=== PATIENT | male | born 1940 | race Caucasian/White ===

== ENCOUNTER 2016-12-01 13:27 | Observation (INO) ==
--- NOTE | 2016-12-01 13:46 | PROVIDER DOCUMENTATION ---
HPI-Neurological Disorder - General Chief Complaint: Stroke-Like Symptoms Stated Complaint: AMS/Aphasia Time Seen by Provider: 12/01/16 13:30 Source: patient, family Allergies/Adverse Reactions: Patient Allergies Allergy/AdvReac Type Severity Reaction Status Date / Time No Known Allergies Allergy Verified 12/01/16 13:33 Home Medications: Home Medication List Medication Instructions Recorded Confirmed Last Taken Type Losartan/Hydrochlorothiazide 1 each PO DAILY 12/01/16 12/01/16 Unknown History [Losartan-Hctz 100-25 mg Tab] - History of Present Illness-Neuro Nature of Presenting Problem: patient is a 76 yo M that presents to the ER after having an episode of confusion with garble speech. reports barely understanding patient. Patient symptoms have resolved. He saw his PCP this am for evaluation of leg weakness and issues walking for 6 months. Severity: reports: moderate Onset/Duration: reports: abrupt, 1 hour ago Timing: reports: improving Context: reports: impaired speech. denies: paresthesia, facial droop Character of Altered Mental Status: reports: confused Character of Deficits: reports: impaired speech New weakness or altered sensation location:: reports: none Cognitive Baseline: alert, oriented x3 Gait Baseline: walks without assistance Associated Symptoms: reports: confusion, slurred speech. denies: headache, dizziness, nausea, numbness in legs/feet, paresthesia, seizures, sleepy, vomiting Similar Symptoms Previously?: No Recently seen or treated by another doctor?: No Review of Systems - Adult - REVIEW OF SYSTEMS - ADULT Constitutional: denies: chills, fever Eyes: denies: decreased vision, blurred vision, double vision Ears, Nose, Mouth & Throat: denies: ear discharge, ear pain, sinus problem, throat pain, throat swelling Cardiovascular: denies: chest pain, palpitations, syncope Respiratory: denies: cough, shortness of breath, wheezing Gastrointestinal: denies: abdominal pain, diarrhea, nausea, vomiting Genitourinary: reports: no symptoms reported Musculoskeletal: denies: back pain, joint pain, neck pain Integumentary: reports: no symptoms reported Neurological: reports: ataxia, slurred speech. denies: loss of balance, numbness, syncope Psychiatric: reports: no symptoms reported Endocrine: reports: no symptoms reported Hematologic/Lymphatic: reports: no symptoms reported Allergic/Immunologic: reports: no symptoms reported All Other Systems: Reviewed and Negative Past History - Adult - PAST MEDICAL HISTORY-ADULT Review of Records: reports: Old Records Reviewed, Nursing Assessment Review, Medications Reviewed Cardiovascular: reports: HTN - PRIOR SURGERIES/PROCEDURES Surgical/Procedure History: reports: orthopedic (extremity) - IMMUNIZATION STATUS Childhood Immunizations: See Nurse Assessment Flu Vaccine: See Nurse Assessment - FAMILY HISTORY Family History: reviewed, not pertinent - SOCIAL HISTORY Smoking: quit greater than 1 year, cigarettes Alcohol Use Frequency: never Living Situation: family Physical Exam- Neurological - Physical Exam-Neuro Initial Vital Signs Reviewed: Yes General Appearance: alert, no apparent distress Eye Exam: bilateral eye: normal inspection, PERRL HENMT: normocephalic/atraumatic, moist mucous membranes, normal ENT inspection Head Injury: no evidence of injury. negative: ecchymosis, flap Neck: full range of motion, normal inspection Respiratory: lungs clear, normal breath sounds, no respiratory distress, no accessory muscle use Cardiovascular: regular rate, rhythm, no edema, no murmur Abdominal Exam: normal bowel sounds, non tender, soft, no organomegaly, no pulsatile mass Extremity: normal range of motion, normal inspection, no pedal edema concrete smoother Exam: normal hearing, normal speech, PERRL Motor/Sensory: no motor deficit, no sensory deficit Neurologic: concrete smoother II-XII nml as tested, no motor/sensory deficits. negative: aphasia, EOM palsy, facial droop, focal weakness, motor weakness, sensory deficit Integumentary: normal color, warm/dry Psych/Mental Status: normal mood/affect, normal thought content, normal thought process, oriented x 3 - Glascow Coma Scale Best Eye Response: (4) open spontaneously Best Verbal Response: (5) oriented Best Motor Response: (6) obeys commands Total Glascow Score: 15 Progress - PLAN OF CARE/RESULTS Progress/Plan/Lab Results: Vital Signs - 8 hr 12/01/16 13:28 12/01/16 14:30 Temperature 99.3 F Pulse Rate 72 66 Respiratory Rate 16 18 Blood Pressure 173/94 161/98 O2 Sat by Pulse Oximetry 99 97 Laboratory Results - last 24 hr 12/01/16 12/01/16 12/01/16 13:40 13:40 13:40 WBC 8.85 RBC 4.07 L Hgb 12.6 L Hct 36.3 L MCV 89.2 MCH 31.0 MCHC 34.7 RDW Std Deviation 12.9 Plt Count 145 MPV 12.1 H Immature Gran % (Auto) 0.6 H Neut % (Auto) 67.3 Lymph % (Auto) 19.3 L Catron % (Auto) 9.3 Eos % (Auto) 2.8 Baso % (Auto) 0.7 Immature Gran # (Auto) 0.05 H Neut # (Auto) 5.96 Lymph # (Auto) 1.71 Catron # (Auto) 0.82 H Eos # (Auto) 0.25 Baso # (Auto) 0.06 PT 13.8 INR 0.98 APTT (Factor Assay) 30.1 Sodium 140 Potassium 3.9 Chloride 104 Carbon Dioxide 25 Anion Gap 11 BUN 19 Creatinine 1.2 Estimated GFR/1.73 m2 59 BUN/Creatinine Ratio 16 Glucose 159 H Calculated Osmolality 285 Calcium 9.0 Total Bilirubin 0.70 AST 15 ALT 13 Alkaline Phosphatase 83 Total Protein 7.3 Albumin 4.2 Globulin 3.0 Albumin/Globulin Ratio 1.0 Orders Category Date Time Status CHEST-2 VIEWS [RAD] Stat Exams 12/01/16 13:[address] HEAD W/O CONTRAST [CT] Stat Exams 12/01/16 13:41 Completed CBC WITH DIFF [HEME] Stat Lab 12/01/16 13:40 Completed COMPREHENSIVE METABOLIC PANEL [CHEM] Stat Lab 12/01/16 13:40 Completed PR[address]IME WITH INR PL [COAG] Stat Lab 12/01/16 13:[address] [COAG] Stat Lab 12/01/16 13:40 Completed EKG [EKG] Stat Ther 12/01/16 13:41 Draft Result Diagrams: 12/01/16 13:40 12/01/16 13:40 - EKG 1 Time of EKG reading by physician:: 13:48 EKG Read and Signed by:: Chris Rudolph EKG Interpretation (*Must complete 3 of following elements*): Normal Rate: 68 Rhythm: NSR [place]: normal QRS: normal [place] Interval: normal ST Wave: normal - XRAY 1 XRAY Study: Chest Impression: Normal XRAY Interpretation: nad - CT/MRI 1 CT Study: Head Impression: Abnormal CT Results: nad, atrophy and microvascular dz - CONSULTS/PCP/HOSPITALIST Notification #1 *Consult/PCP/Hospitalist*: ( hospitalist) Time Discussed: 15:40 Consult Disposition: Admit Departure - Departure Date of Disposition Decision: 12/01/16 Time of Disposition Decision: 15:40 DIAGNOSIS: TIA (transient ischemic attack) Qualifiers: Transient cerebral ischemia type: unspecified Qualified Code(s): G45.9 - Transient cerebral ischemic attack, unspecified Disposition: ADMITTED INPATIENT 09 Certified Medical Emergency: Emergent Condition: Stable Referrals and Follow-Ups: None,PCP [Primary Care Provider] - - Critical Care Note This patient required my direct & personal management of CC.: No Attestation - Physician/ RUFINA Attestation The physician spent face to face time with patient:: Yes Advanced Practice Provider documentation review:: Supervising physician onsite and consulted in the evaluation and care of this patient. The physician did have a face to face encounter with the patient.
[2016-12-01 13:50] LABS: MANUAL DIFF NEEDED? NO
[2016-12-01 13:52] LABS: BASO% 0.7 % (0.0-0.8); EOS# 0.25 X1000 (0.0-0.7); EOS% 2.8 % (0.0-10.0); HEMATOCRIT 36.3 % (42.0-52.0); HEMOGLOBIN 12.6 g/dL (14.0-18.0); IMM GRAN# 0.05 X1000 (0.0-0.04); IMM GRAN% 0.6 % (0.0-0.5); LYMPH# 1.71 X1000 (1.2-3.4); LYMPH% 19.3 % (20.5-51.1); MCHC 34.7 g/dL (33-37); MCV 89.2 FL (81-99); MONO# 0.82 X1000 (0.11-0.59); MONO% 9.3 % (1.7-9.3); MPV 12.1 FL (7.4-10.4); NEUT% 67.3 % (42.2-75.2); PLT 145 X1000 (130-400); RBC 4.07 XMIL (4.7-6.1)
--- NOTE | 2016-12-01 14:03 | EKG Report ---
Test Performed on : 12/01/2016 1:48:04 PM Test Reason : STROKELIKE Blood Pressure : / mmHG Vent. Rate : 068 BPM Atrial Rate : 068 BPM P-R Int : 184 ms QRS Dur : 088 ms QT Int : 422 ms P-R-T Axes : 048 017 074 degrees QTc Int : 448 ms Normal sinus rhythm. Normal ECG No previous ECGs available Unconfirmed Result
[2016-12-01 14:06] LABS: INR 0.98 (0.86-1.15); PROTIME 13.8 Seconds (12.1-15.5); PTT PL 30.1 Seconds (22.6-43.9)
[2016-12-01 14:08] LABS: ALBUMIN 4.2 g/dL (3.5-5.0); POTASSIUM 3.9 mmol/L (3.5-5.1); TOTAL BILIRUBIN 0.7 mg/dL (0.20-1.00); TOTAL PROTEIN 7.3 g/dL (6.3-8.3)
--- NOTE | 2016-12-01 14:35 | Diag Imaging Result Doc PS360 ---
EXAM: CT HEAD W/O CONTRAST HISTORY: stroke like symptoms TECHNIQUE: Images were obtained from the skull base to vertex without IV contrast as per standard protocol. COMPARISON: None. FINDINGS: There are no extra-axial collections. There is no evidence for acute hemorrhage. There is no midline shift or mass effect. There is no hydrocephalus. There is diffuse cerebral atrophy. There is patchy hypodensity throughout the deep white matter which is nonspecific in appearance but likely related to microvascular disease IMPRESSION: No acute intracranial abnormality is appreciated. Atrophy and microvascular disease. Electronically signed by Elicia Foster 12/01/2016 2:33 PM
--- NOTE | 2016-12-01 14:37 | Diag Imaging Result Doc PS360 ---
EXAM: CHEST-2 VIEWS HISTORY: stroke like symptoms TECHNIQUE: PA and Lateral chest x-ray COMPARISON: None. FINDINGS: The cardiomediastinal silhouette is within normal limits. The pulmonary vasculature is not congested. No infiltrate, effusion, or pneumothorax is appreciated. There is evidence of previous granulomatous infection IMPRESSION: No acute cardiopulmonary abnormality is identified. Electronically signed by Elicia Foster 12/01/2016 2:35 PM
[2016-12-01] MEDS: PLAVIX PO SCH (16:13)
[2016-12-01] MEDS ORDERED: APRESOLINE IV PRN (17:35)
--- NOTE | 2016-12-01 18:49 | Extremity Venous Study ---
Carotid Ultrasound - 12/01/2016 INDICATION: tia TECHNIQUE: Bilateral carotid artery Doppler ultrasound COMPARISON: None FINDINGS: On the right side, there is some mild plaque buildup at the proximal internal carotid artery. No elevated velocities. Estimated stenosis is 0%. On the left side, there is severe plaque buildup and elevated velocity at the proximal-mid internal carotid artery. Maximum velocity is 331 cm/s at the proximal internal carotid artery. This is consistent with severe stenosis of 80-99%. The vertebral arteries are patent bilaterally. IMPRESSION: Severe stenosis of the left proximal internal carotid artery, 80-99%. Electronically signed by Tree Caban 12/01/2016 6:46 PM
--- NOTE | 2016-12-02 00:24 | CONSULTATION ---
DATE OF CONSULTATION: 12/01/2016 HISTORY OF PRESENT ILLNESS: This is a 76-year-old male who presents to the emergency department after he developed dysarthria today. States that he had trouble getting words out for what he was wanting to say. Daughter states it has some these were appropriate words but in some of it but in inappropriate order and some were discombobulated words. He denied any other focal deficits and this resolved within an hour upon arrival at the emergency room. Denies any headaches or symptoms currently. In emergency department a CT of the head showed some microvascular changes but no hemorrhage and there was some atrophy. Carotid duplex exam showed high- grade lesion correlating to 80-99% lesion in the left proximal internal carotid artery. Otherwise he has never had a colonoscopy but has hypertension is being treated by Dr. Simms, his primary care physician but denies any history of a TIA, stroke or coronary symptoms in the past. PAST MEDICAL HISTORY: 1. Hypertension. 2. Carotid stenosis. SURGICAL HISTORY: Has had an appendectomy and right knee surgery. SOCIAL HISTORY: Used to smoke many years ago was heavy at that point but denies any current, denies alcohol. He has got a lot of family here. He does some computer programming. FAMILY HISTORY: Significant for diabetes, coronary disease but no cancer. REVIEW OF SYSTEMS: Ten point negative than what is mentioned in HPI. PHYSICAL EXAMINATION: Vital Signs: Temperature is 97.6 degrees, pulse 68, blood pressure 194/68, oxygen saturation 100% on room air, 303 pounds, 5 foot 11. General: He is alert in no acute distress. He is oriented. HEENT: There is no scleral icterus or cervical masses. Cardiovascular: Normal rate, regular rhythm. Pulmonary: No increased work of breathing. He is on room air with equal chest rise. Abdomen: Soft, nontender, nondistended with no pulsatile abdominal masses. Integument: Exam is warm, dry without jaundice or rashes. Peripheral vascular: Exam shows 2+ bilateral radial pulses, 2+ pedal pulses in all locations. Extremities: Are otherwise warm, well perfused. No lower extremity edema. Musculoskeletal Exam: He has normal muscle mass throughout and grossly normal range of motion. Psychiatric: He has got an appropriate affect. Neurologic: He has cranial nerves 2-12 grossly intact. Pupils are equal, round, reactive. Muscle groups grossly are 5/5 throughout, sensation is intact throughout. Speech is normal and coherent and he is oriented to person, place, and time. Lymphatic exam: There is no cervical, axillary or inguinal lymphadenopathy. LABS: White count is normal at 8, hematocrit 36, platelets 145,000. INR 0.98. Creatinine is 1.2, glucose 159, LFTs are normal. Albumin is 4.2. CT of the head shows no intracranial abnormality other than atrophy and microvascular disease. There is no evidence of hemorrhage. Carotid duplex exam shows an 80-99% stenosis in the proximal left internal carotid artery. I have reviewed these images as well. ASSESSMENT AND PLAN: This is a 76-year-old male with transient ischemic attack symptoms that manifest with the dysarthria and he has also a high-grade severe stenosis left internal carotid artery noted correspond to symptoms he was having. He has been admitted to medicine service for observation. Would recommend permissive hypertension but maintaining blood pressure less than 180 would be reasonable to maintain supplemental O2. I would recommend initiation of anti-platelet therapy with aspirin and statin medication. We will continue to follow along. He also has a history of atrial fibrillation apparently that would probably benefit from having a echocardiogram to rule out any ventricular thrombus and an MRI of the brain would be reasonable as well to rule out any acute infarct that might affect his surgical planning although his symptoms do seem to be resolved. As far as endarterectomy I think he would benefit with a severe stenosis and symptoms of TIA and I think we could perform this within the next week pending progression of his symptoms or resolution thereof. Will continue follow along. I have spoken with the patient and family and will talk to the medicine service about him as well. cc: Mary Alice Naylor MD [facility]
[2016-12-02] MEDS ORDERED: LIPITOR PO ONE (08:18)
[2016-12-02] MEDS ORDERED: ASPIRIN PO ONE (08:18)
[2016-12-02] MEDS: PLAVIX PO SCH (08:53)
[2016-12-02] MEDS: ASPIRIN PO SCH (10:36)
[2016-12-02] MEDS: HYDROCHLOROTHIAZIDE PO SCH (10:37)
[2016-12-02] MEDS: COZAAR PO SCH (10:38)
--- NOTE | 2016-12-02 12:40 | PROGRESS NOTE ---
DATE: 12/02/2016 SUBJECTIVE: Feels well. No other neurologic episodes overnight. No headache. He feels well and in his usual state of health. PHYSICAL EXAM: Temperature is 97.6 degrees, pulse for most part has been in the 50s to 60s overnight. Blood pressure 154/61, oxygen saturation 99% on room air.General: He is alert, in no acute distress. HEENT: No scleral icterus. Cardiovascular: Normal rate, regular rhythm. Pulmonary: No increased work of breathing. Integument: Warm and dry without jaundice. Neurological: Cranial nerves are intact 2 through 12. Strength in his upper and lower extremities is also 5/5 and symmetric and his sensation is grossly normal. His affect is normal and he is oriented to person, place, and time and is speaking coherently and normally. Has full insight into his current medical condition. ASSESSMENT AND PLAN: A 76-year-old male with a TIA yesterday afternoon with a severe carotid stenosis on the left that meets criteria for surgical repair. I have initiated medical management and anti-platelet and statin therapy. His blood pressures are okay and he is being worked up by Dr. Altman in the Medicine Service. He does have atrial fibrillation and I think an echocardiogram to rule out thrombus is indicated. Otherwise if he remains asymptomatic through the weekend, we can see him in the office and plan for short interval elective left carotid endarterectomy. Otherwise we will continue to monitor him. For now I think an MRI of his brain would be reasonable to rule out a stroke although focally he does not seem to have this on his exam, as this might affect our timing of endarterectomy. I spoke with Dr. Altman about the care of this patient. cc: Mary Alice Naylor MD
--- NOTE | 2016-12-02 14:13 | PROGRESS NOTE ---
DATE: 12/02/2016 SUBJECTIVE: Patient notes that he is feeling fine. Having no current issues. No slurred speech. No headaches. No blurry vision. PHYSICAL: Vital Signs: Reviewed and stable. General: Patient is awake, alert. He is in no current respiratory distress. Pleasant to talk with. Neck: Supple. CV: Regular rate. Chest: Relatively clear. Abdomen: Soft. Extremities: Moves all extremities. Neurologic: No focal changes. He is awake, alert, oriented. Speech is regular. Memory is intact. ASSESSMENT: 1. TIA appears to have completely resolved. 2. Known carotid stenosis. PLAN: We will continue patient in the hospital today. If he had no further symptoms in the a.m. we will discharge home on cholesterol medication and aspirin. He will follow up outpatient at that point with Surgery. We will continue to follow his blood pressure. Further orders as needed. cc: Jose Altman MD
--- NOTE | 2016-12-02 14:54 | ECHO REPORT ---
ORDER DATE: 12/01/2016 ECHOCARDIOGRAPHIC MEASUREMENTS: 1. Interventricular septum 1.4. Left ventricular posterior wall 1.4. Diastolic diameter 4.3. Left atrium 5. Aorta 3.5. 2. Aortic valve leaflets were sclerosed, trileaflet opening normally. Pulmonic valve was normal. There is trace pulmonary regurgitation. Tricuspid valve was normal. 3. Normal left ventricular cavity size. Estimated ejection fraction of 65%. 4. There is trace to mild mitral regurgitation. Mild tricuspid regurgitation. Peak velocity across the tricuspid valve was 2.6 m/sec. 5. Peak velocity across the aortic valve less than 2 m/sec. There is no aortic stenosis. There is aortic sclerosis. There is no aortic regurgitation. 6. There is no pericardial effusion or obvious intracardiac mass or thrombus seen. cc: MD Chris Springer MD
[2016-12-02] MEDS ORDERED: ZOCOR PO SCH (21:00)
[2016-12-03] MEDS: COZAAR PO SCH (08:41)
[2016-12-03] MEDS: ASPIRIN PO SCH (08:41)
[2016-12-03] MEDS: HYDROCHLOROTHIAZIDE PO SCH (08:41)
[2016-12-03 11:47] VITALS: BP 150/68
--- NOTE | 2016-12-03 17:12 | HISTORY AND PHYSICAL ---
CHIEF COMPLAINT: Confused, could not talk right. HISTORY OF PRESENT ILLNESS: This is a 76-year-old gentleman who presented with family member stating that the patient was confused and he could not talk right. He was aphasic at first arrival to the emergency room. This did clear somewhat to a dysarthria. CT scan was negative for a bleed, although he did have some microvascular changes. He was admitted for further evaluation and treatment. PAST MEDICAL HISTORY: Hypertension. PAST SURGICAL HISTORY: Right knee repair. SOCIAL HISTORY: He smoked many years ago. He denies alcohol or illicit drug use. ALLERGIES: No known drug allergies. HOME MEDICATIONS: A list will be obtained. REVIEW OF SYSTEMS: A 14-point review of systems is discussed with patient, with pertinent positives stated in the HPI. He denied chest pain, palpitations, dizziness, syncope, any nausea or vomiting, diarrhea, constipation, black or bloody vomitus, black or bloody stools, hematuria, dysuria, frequency and urgency. PHYSICAL EXAMINATION: GENERAL: This is a 76-year-old gentleman who is sitting up in the bed, in no distress. HEENT: Head is normocephalic, atraumatic. Pupils equal, round, react to light. EOMS are intact. Sclerae are anicteric. Mucous membranes are moist. NECK: Supple. Trachea midline. CARDIOVASCULAR: Regular rate and rhythm. S1 and S2 appreciated. PULMONARY: Breath sounds are clear, with no increased work of breathing noted. GASTROINTESTINAL: Abdomen is soft, nontender, nondistended, with bowel sounds in all 4 quadrants. BACK: No CVAT. No spine tenderness. MUSCULOSKELETAL: Good range of motion of joints. EXTREMITIES: No clubbing, cyanosis, or edema. Calves are nontender. Pulses are palpable x4. NEUROLOGIC: He is alert and oriented x3. Forehead is spared. He has equal nasal flaring. No tongue or uvula deviation. Speech is clear. Equal shoulder shrug. He has no plantar drift. He has 5/5 muscle strength and manager control to bilateral upper extremities, with 5/5 muscle strength to lower extremities. DIAGNOSTICS: WBC is 8.8, with hemoglobin 12, hematocrit 36.3, and platelets of 145,000. Sodium is 140, potassium 3.9, BUN 19, creatinine 1.2, with a glucose of 159. CT scan of the head revealed no acute changes. No hemorrhage or mass effect, but chronic microvascular changes. ASSESSMENT AND PLAN: 1. Transient ischemic attack. 2. Severe carotid artery stenosis. He will be admitted to the hospital. Placed on telemetry. We will obtain neurologic checks. We will consult General surgery. We will obtain an echocardiogram. We will identify his home medications and continue as appropriate. Further treatments pending hospital course. Dictated by APRIL Ruggiero for Jose Altman MD cc: APRIL Ruggiero MD
--- NOTE | 2016-12-03 18:13 | DISCHARGE SUMMARY ---
ADMISSION DATE: 12/01/2016 DISCHARGE DATE: 12/03/2016 DIAGNOSES: 1. Transient ischemic attack, resolved. 2. Known carotid stenosis. CONSULTATIONS: Dr. Josh Naylor, General Surgery. DIAGNOSTICS: 1. On 12/01/2016, CT of the head revealed no acute intracranial abnormality appreciated. Atrophy and microvascular disease. 2. On 12/01/2016, carotid Doppler study revealed severe stenosis of the left proximal internal carotid artery, 80% to 99%. 3. Echocardiogram, revealed an ejection fraction of 65%, with normal left ventricular cavity size. Pulmonic and tricuspid valves are normal. There is trace pulmonary regurgitation. Aortic valve is tri-leaflet. No pericardial effusion, obvious intracardiac mass, or thrombus seen. HOSPITAL COURSE: Mr. Yoon presented to the emergency room and was having some dysarthria. CT scan showed some microvascular changes, but no hemorrhage. There was some atrophy. Cardiac duplex exam showed high-grade lesion, 80% to 99%, in the left proximal internal carotid artery. He was evaluated by Dr. Josh Naylor in General Surgery. Thankfully, his symptoms have resolved. DISCHARGE PHYSICAL EXAMINATION: Cardiovascular: Regular rate and rhythm. S1 and S2 appreciated. Pulmonary: Breath sounds are clear, with no increased work of breathing noted. Gastrointestinal: Abdomen is soft, nontender, nondistended, with bowel sounds in all 4 quadrants. Extremities: No clubbing, cyanosis, or edema. Calves are nontender. Pulses are palpable x4. Neurologic: He is alert and oriented x3. Cranial nerves 2 through 12 grossly intact. Vital Signs: Blood pressure is 149/71, with a heart rate of 56, respirations are 18, temperature is 98.5 degrees oral, with room air saturations 98%. DISCHARGE MEDICATIONS: Aspirin 81 mg 2 tablets daily, Zocor 40 mg at bedtime, and losartan/hydrochlorothiazide 100/25 daily. FOLLOWUP: 1. He is to follow up with Dr. Esteban Simms, his primary care physician, in the next 1 to 2 weeks. 2. He will need a MRI of the brain outpatient. 3. Follow up with Dr. Naylor in General Surgery in the next week. DISPOSITION: He is being discharged home in stable condition with family members. TIME SPENT: This is a greater than 30-minute discharge. Dictated by APRIL Ruggiero for Jose Altman MD cc: APRIL Ruggiero MD
--- NOTE | 2016-12-04 03:46 | DISCHARGE SUMMARY ---
ADMISSION DATE: 12/01/2016 DISCHARGE DATE: 12/03/2016 ADDENDUM: Discharge planning and discussion with patient occurred with nurse practitioner. Please see full note. The patient was admitted as noted on HPI with a TIA with slurred speech. Thankfully this completely resolved. On discharge, he is awake, alert, oriented. He has had no further symptoms for the past 48 hours. He will be discharged home with aspirin and Zocor. He will follow up with Dr. Simms in the morning to schedule an outpatient MRI of his brain. After the MRI is performed, he will follow up with General Surgery for discussion regarding carotid endarterectomy. Patient understands that he is to take it easy and not to overstimulate himself in the next few days until he follows up with Surgery. cc: Jose Altman MD
--- NOTE | 2016-12-04 03:47 | PROGRESS NOTE ---
DATE: 12/01/2016 ADDENDUM REPORT SUBJECTIVE: The patient was seen and examined. See full note. Patient discussed and plan discussed with nurse practitioner. The patient notes that he had slurred speech at home, although now it is currently completely resolved. He denies any focal weakness at home or now, denies any headaches, blurred vision, change in vision. Thankfully, his symptoms have resolved. He was noted to have a significant carotid blockage in the ER, and Surgery will be consulted for a further opinion. Discussed with patient that we will most likely attempt to wait a few days before surgical intervention. Will add aspirin and cholesterol medication. cc: Jose Altman MD
== END 2016-12-03 13:33 | disposition home or self-care (01) ==
LOC: P.MEDSURG 13:27 → P.ED 13:27 → SUATTDRO 17:14
PROVIDERS: ATTEND Family Medicine

== ENCOUNTER 2016-12-20 01:42 | Inpatient (IN) ==
[2016-12-20] MEDS ORDERED: KEFZOL 1 GM/D5W 0 GM/0 ML IVPB ONE (05:49)
[2016-12-20] MEDS ORDERED: LR 1,000 ML ONE ×2 (05:49→11:03)
[2016-12-20] MEDS ORDERED: DIPRIVAN 1% ONE (06:35)
[2016-12-20] MEDS ORDERED: XYLOCAINE-MPF 2% ONE (06:36)
[2016-12-20] MEDS ORDERED: QUELICIN (DOSE) ONE (06:36)
[2016-12-20] MEDS ORDERED: SODIUM CHLORIDE 0.9% 10 ML ONE (06:37)
[2016-12-20] MEDS ORDERED: NORCURON ONE (06:37)
[2016-12-20] MEDS ORDERED: FENTANYL ONE (06:38)
[2016-12-20] MEDS ORDERED: ATROPINE ONE (06:40)
[2016-12-20] MEDS ORDERED: XYLOCAINE 1%/EPI 1:100,000 ONE (06:45)
[2016-12-20] MEDS ORDERED: NS 1,000 ML ONE (06:46)
[2016-12-20] MEDS ORDERED: XYLOCAINE 1% ONE (06:46)
[2016-12-20] MEDS ORDERED: NS 0 ML ONE (06:55)
[2016-12-20] MEDS ORDERED: VERSED ONE (07:14)
[2016-12-20] MEDS ORDERED: KEFZOL 1 GM/D5W 1 GM/50 ML IVPB ONE (07:16)
[2016-12-20] MEDS ORDERED: HEPARIN ONE (08:21)
[2016-12-20] MEDS ORDERED: EPHEDRINE ONE (08:44)
[2016-12-20] MEDS ORDERED: NEO-SYNEPHRINE ONE (09:06)
[2016-12-20] MEDS ORDERED: NEOSTIGMINE ONE (09:43)
[2016-12-20] MEDS ORDERED: ROBINUL ONE (09:44)
[2016-12-20] MEDS ORDERED: DECADRON ONE (10:02)
[2016-12-20] MEDS ORDERED: ZOFRAN ONE (10:02)
[2016-12-20] MEDS ORDERED: NITROGLYCERIN 50 MG/D5W 0 MG/0 ML IV.SOLN ONE (10:12)
[2016-12-20] MEDS ORDERED: NORCO-10 PO PRN (13:42)
[2016-12-20] MEDS ORDERED: ZOFRAN IV PRN (13:42)
[2016-12-20] MEDS: LR 1,000 ML IV SCH ×2 (14:55→23:54)
[2016-12-20] MEDS ORDERED: HEPARIN (DOSE) ONE (15:03)
[2016-12-20] MEDS: ZOCOR PO SCH (20:07)
[2016-12-21] MEDS: LR 1,000 ML IV SCH (06:23)
[2016-12-21] MEDS: ASPIRIN PO SCH (09:18)
[2016-12-21] MEDS: HYZAAR 50/12.5 MG PO SCH (09:18)
[2016-12-21] MEDS: ZOCOR PO SCH (22:02)
[2016-12-22] MEDS: ASPIRIN PO SCH (09:47)
[2016-12-22] MEDS: HYZAAR 50/12.5 MG PO SCH (09:48)
[2016-12-22 12:16] VITALS: BP 135/54
== END 2016-12-22 15:24 | disposition home or self-care (01) ==
LOC: SURHOLD 01:42 → ICU 11:53 → 4N 12-21 15:11
PROVIDERS: ADMIT Surgery; ATTEND Surgery

== ENCOUNTER 2018-09-01 10:06 | Observation (INO) ==
[2018-09-01 11:08] LABS: BASO# 0.07 X1000 (0.0-0.2); BASO% 0.8 % (0.0-0.8); EOS# 0.37 X1000 (0.0-0.7); EOS% 4.1 % (0.0-10.0); HEMATOCRIT 40.3 % (42.0-52.0); HEMOGLOBIN 13.8 g/dL (14.0-18.0); IMM GRAN# 0.02 X1000 (0.0-0.04); IMM GRAN% 0.2 % (0.0-0.5); LYMPH# 1.73 X1000 (1.2-3.4); LYMPH% 19.2 % (20.5-51.1); MCH 31.4 PG (27-31); MCHC 34.2 g/dL (33-37); MCV 91.6 FL (81-99); MONO# 0.83 X1000 (0.11-0.59); MONO% 9.2 % (1.7-9.3); NEUT% 66.5 % (42.2-75.2); PLT 128 X1000 (130-400); RDW 13.1 % (11.5-14.5); WBC 9.02 X1000 (4.8-10.8)
--- NOTE | 2018-09-01 11:16 | Diag Imaging Result Doc PS360 ---
EXAM: CHEST-1 VIEW HISTORY: possible stroke TECHNIQUE: Chest single view COMPARISON: 05/06/2017 FINDINGS: The lungs are well expanded. The heart is not enlarged. The vessels are not distended. There are no infiltrates. No effusion identified. Right granuloma. IMPRESSION: Negative exam. Electronically signed by Keven Dewitt 09/01/2018 11:14 AM
[2018-09-01 11:18] LABS: ALB/GLOB RATIO 1.2; ALBUMIN 3.7 g/dL (3.5-5.0); CALCIUM 9.2 mg/dL (8.8-10.2); CREATININE 1.2 mg/dL (0.7-1.2); POTASSIUM 4.5 mmol/L (3.5-5.1); TOTAL BILIRUBIN 0.47 mg/dL (0.20-1.00); TOTAL PROTEIN 6.9 g/dL (6.3-8.3)
--- NOTE | 2018-09-01 11:55 | Diag Imaging Result Doc PS360 ---
EXAM: CT HEAD W/O CONTRAST HISTORY: possible tia TECHNIQUE: Emergency CT brain without contrast COMPARISON: 05/06/2017 FINDINGS: No parenchymal hemorrhage. No epidural or subdural hematoma. No subarachnoid hemorrhage. There is atrophy and chronic microvascular ischemic changes No mass identified on this noncontrasted exam. No hydrocephalus. No sinus opacification. IMPRESSION: 1.No hemorrhage 2.Atrophy with chronic microvascular ischemic changes in This exam was performed using automated exposure control, adjustment of mA or kV according to patient size, and/or use of iterative reconstruction technique. Electronically signed by Keven Dewitt 09/01/2018 11:53 AM
[2018-09-01 12:12] LABS: URINE SOURCE CLEAN CATCH
[2018-09-01 12:35] LABS: BILIRUBIN URINE NEGATIVE (NEGATIVE); BLOOD URINE SMALL (NEGATIVE); COLOR YELLOW; GLUCOSE URINE NEGATIVE (NEGATIVE); KETONE URINE NEGATIVE (NEGATIVE); LEUKOCYTES URINE LARGE (NEGATIVE); NITRITE URINE POSITIVE (NEGATIVE); PROTEIN URINE TRACE mg/dL (NEGATIVE); SP GRAVITY URINE 1.022; TURBIDITY URINE TURBID (CLEAR); UROBILINOGEN URINE NORMAL (NORMAL)
[2018-09-01 12:37] LABS: UR EPITHELIAL CELLS <10 /HPF (<10); URINE BACTERIA 4+ /HPF; URINE RBC <10 /HPF (<10); URINE WBC TNTC /HPF (<10)
[2018-09-01] MEDS ORDERED: ROCEPHIN 1 GM in NS 50 ML IV ONE (12:39)
[2018-09-01] MEDS ORDERED: ZOFRAN IV PRN (13:33)
[2018-09-01] MEDS ORDERED: TYLENOL PO PRN (13:33)
[2018-09-01] MEDS: NS 1,000 ML IV SCH (13:56)
--- NOTE | 2018-09-01 14:29 | PROVIDER DOCUMENTATION ---
This chart was entered by Sera Horowitz Scribe, acting as scribe for Yuri Honeycutt MD. HPI-Neurological Disorder - General Chief Complaint: Back Pain Stated Complaint: stroke like symptoms Time Seen by Provider: 09/01/18 10:37 Source: patient, family Allergies/Adverse Reactions: Patient Allergies Allergy/AdvReac Type Severity Reaction Status Date / Time No Known Allergies Allergy Verified 05/06/17 15:16 Home Medications: Home Medication List Medication Instructions Recorded Confirmed Last Taken Type Aspirin 81 mg PO DAILY chewtab 05/16/17 09/01/18 Unknown Rx Cholecalciferol (Vitamin D3) 1 cap PO DAILY 09/01/18 09/01/18 Unknown History [Vitamin D3] Docusate Sodium [Colace] 1 tab PO DAILY 09/01/18 09/01/18 Unknown History Dulaglutide [Trulicity] 0.5 ml SQ DIRECTED 09/01/18 09/01/18 08/27/18 History Losartan [Cozaar] 1 tab PO DAILY 09/01/18 09/01/18 Unknown History Memantine HCl 1 tab PO BID 09/01/18 09/01/18 Unknown History - History of Present Illness-Neuro Nature of Presenting Problem: 77 y/o male presents to ED with expressive aphasia, confusion, and blurred vision onset last night. Pt reports the episode lasted 1-1.5 hours and has since subsided. Pt also complains of low back pain and discolored, dark urine. Family of pt states his blood pressure has been fluctuating over the past few days. Pt has hx TIA. Pt is alert and oriented. Severity: reports: moderate Onset/Duration: reports: last night Timing: reports: gone now Context: reports: impaired speech Character of Altered Mental Status: reports: confused Any recent trauma/injury?: reports: none Character of Deficits: reports: vision problem/glaucoma, impaired speech New weakness or altered sensation location:: reports: none Cognitive Baseline: alert, oriented x3 Gait Baseline: uses a cane Associated Symptoms: reports: confusion, neck/back pain (low back), vision changes, other (expressive aphasia; dark colored urine; blood pressure problems) Similar Symptoms Previously?: Yes (hx TIA) Recently seen or treated by another doctor?: No Review of Systems - Adult - REVIEW OF SYSTEMS - ADULT Constitutional: reports: other (confusion; blood pressure problems). denies: chills, fever Eyes: reports: blurred vision. denies: eye pain Ears, Nose, Mouth & Throat: reports: no symptoms reported Cardiovascular: reports: other (blood pressure problems). denies: chest pain, palpitations Respiratory: denies: cough, shortness of breath Gastrointestinal: denies: abdominal pain, diarrhea, nausea, vomiting Genitourinary: reports: other (dark colored urine). denies: incontinence Musculoskeletal: reports: back pain (low). denies: joint pain Integumentary: reports: no symptoms reported Neurological: reports: other (confusion; expressive aphasia). denies: dizziness/vertigo, seizure Psychiatric: reports: no symptoms reported Endocrine: reports: no symptoms reported Hematologic/Lymphatic: reports: no symptoms reported Allergic/Immunologic: reports: no symptoms reported All Other Systems: Reviewed and Negative Past History - Adult - PAST MEDICAL HISTORY-ADULT Review of Records: reports: Old Records Reviewed, Nursing Assessment Review, Medications Reviewed Major Childhood Illnesses: reports: denies history Cardiovascular: reports: A-Fib, HTN Neurological: reports: TIA Endocrine/Immune: reports: Diabetes - PRIOR SURGERIES/PROCEDURES Surgical/Procedure History: reports: appendectomy, orthopedic (extremity) (R great toe; R leg tendon repair), other (L carotid endarterectomy) - IMMUNIZATION STATUS Childhood Immunizations: See Nurse Assessment Flu Vaccine: See Nurse Assessment - FAMILY HISTORY Family History: reviewed, not pertinent - SOCIAL HISTORY Smoking: quit greater than 1 year Substance Use: none/never Alcohol Use Frequency: never Living Situation: family Physical Exam- Neurological - Physical Exam-Neuro Initial Vital Signs Reviewed: Yes General Appearance: appears well, alert, no apparent distress Eye Exam: bilateral eye: normal inspection, PERRL, EOMI HENMT: normocephalic/atraumatic, moist mucous membranes, normal ENT inspection Head Injury: no evidence of injury Neck: non-tender, full range of motion Respiratory: chest non-tender, lungs clear, normal breath sounds Cardiovascular: normal peripheral pulses, regular rate, rhythm Abdominal Exam: normal bowel sounds, soft, tenderness (suprapubic) Extremity: normal range of motion, non-tender, normal gait, normal inspection, no pedal edema, no calf tenderness, normal capillary refill auto body repairman Exam: normal hearing, normal speech, PERRL Coordination/Gait: normal finger to nose, normal gait Motor/Sensory: no motor deficit, no sensory deficit, no pronator drift Neurologic: auto body repairman II-XII nml as tested (Intact), grossly normal, no motor/sensory deficits Integumentary: normal color, warm/dry Psych/Mental Status: normal mood/affect, normal thought content, normal thought process Progress - PLAN OF CARE/RESULTS Progress/Plan/Lab Results: Vital Signs - 8 hr 09/01/18 10:11 Temperature 97.4 F L Pulse Rate 68 Respiratory Rate 18 Blood Pressure 104/58 O2 Sat by Pulse Oximetry 95 Laboratory Results - last 24 hr 09/01/18 09/01/18 09/01/18 10:54 10:54 11:23 WBC 9.02 RBC 4.40 L Hgb 13.8 L Hct 40.3 L MCV 91.6 MCH 31.4 H MCHC 34.2 RDW Std Deviation 13.1 Plt Count 128 L MPV 12.0 H Immature Gran % (Auto) 0.2 Neut % (Auto) 66.5 Lymph % (Auto) 19.2 L [place] % (Auto) 9.2 Eos % (Auto) 4.1 Baso % (Auto) 0.8 Immature Gran # (Auto) 0.02 Neut # (Auto) 6.00 Lymph # (Auto) 1.73 [place] # (Auto) 0.83 H Eos # (Auto) 0.37 Baso # (Auto) 0.07 Sodium 142 Potassium 4.5 Chloride 107 Carbon Dioxide 26 Anion Gap 9 BUN 24 H Creatinine 1.2 Estimated GFR/1.73 m2 58 BUN/Creatinine Ratio 20 Glucose 98 Calculated Osmolality 287 Calcium 9.2 Total Bilirubin 0.47 AST 21 ALT 27 Alkaline Phosphatase 74 Total Protein 6.9 Albumin 3.7 Globulin 3.2 Albumin/Globulin Ratio 1.2 Urine Source CLEAN CATCH Urine Color YELLOW Urine Turbidity TURBID Urine pH 6.0 Ur Specific [place] 1.022 Urine Protein TRACE A Ur Glucose (Stick) NEGATIVE Ur Ketones (Stick) NEGATIVE Urine Blood SMALL A Urine Nitrite POSITIVE A Urine Bilirubin NEGATIVE Urobilinogen Dipstick NORMAL Urine Leukocytes LARGE A Urine WBC (Auto) TNTC A Urine RBC (Auto) <10 U Epithel Cells (Auto) <10 Urine Bacteria (Auto) 4+ Orders Category Date Time Status Nursing- Obtain EKG ONCE Care 09/01/18 10:[address] HEAD W/O CONTRAST [CT] Stat Exams 09/01/18 10:48 Completed cxr [CHEST-1 VIEW] [RAD] Stat Exams 09/01/18 10:48 Completed BLOOD CULTURE [BLDCUL] Stat Lab 09/01/18 12:40 Ordered CBC WITH ELECTRONIC DIFF [HEME] Stat Lab 09/01/18 10:54 Completed COMPREHENSIVE METABOLIC PANEL [CHEM] Stat Lab 09/01/18 10:54 Completed URINALYSIS [URINALYSIS] Stat Lab 09/01/18 11:23 Completed CefTRIAXONE [Rocephin] 1 gm Med 09/01/18 12:39 Discontinued 0.9% Sodium Chloride Inj [Ns] 50 ml IV NOW EKG [EKG] Stat Ther 09/01/18 10:48 Ordered Result Diagrams: 09/01/18 10:54 09/01/18 10:54 - EKG 1 Time of EKG reading by physician:: 11:09 EKG Read and Signed by:: Yuri Honeycutt EKG Interpretation (*Must complete 3 of following elements*): Abnormal Rate: 63 Rhythm: Junctional [place]: normal QRS: normal FL Interval: normal ST Wave: normal - XRAY 1 XRAY Study: Chest Impression: Normal (FINDINGS: The lungs are well expanded. The heart is not enlarged. The vessels are not distended. There are no infiltrates. No effusion identified. Right granuloma. IMPRESSION: Negative exam. Electronically signed by Keven Dewitt 09/01/2018 11:14 AM) - CT/MRI 1 CT Study: Head Impression: Normal (FINDINGS: No parenchymal hemorrhage. No epidural or subdural hematoma. No subarachnoid hemorrhage. There is atrophy and chronic microvascular ischemic changes No mass identified on this noncontrasted exam. No hydrocephalus. No sinus opacification. IMPRESSION: 1.No hemorrhage 2.Atrophy with chronic microvascular ischemic changes in This exam was performed using automated exposure control, adjustment of mA or kV according to patient size, and/or use of iterative reconstruction technique. Electronically signed by Keven Dewitt 09/01/2018 11:53 AM) - CONSULTS/PCP/HOSPITALIST Notification #1 *Consult/PCP/Hospitalist*: APRIL Chavez for hospitalist Time Discussed: 13:20 Reason/Comments: Expressive aphasia, UTI, TIA Consult Disposition: Admit Departure - Departure Date of Disposition Decision: 09/01/18 Time of Disposition Decision: 12:50 DIAGNOSIS: Expressive aphasia, UTI (urinary tract infection), TIA (transient ischemic attack) Disposition: ADMITTED INPATIENT 09 Certified Medical Emergency: Emergent Condition: Fair Referrals and Follow-Ups: Esteban Simms MD [Primary Care Provider] - - Critical Care Note This patient required my direct & personal management of CC.: No Attestation - Physician/ RUFINA Attestation Patient care was provided by Advanced Practice Provider:: No The physician spent face to face time with patient:: Yes Advanced Practice Provider documentation review:: Supervising physician onsite and consulted in the evaluation and care of this patient. The physician did have a face to face encounter with the patient. - NIH Stroke Scale NIH Type: Initial Evaluation Level of Consciousness: 0-Alert LOC Questions (ask month and age): 0-Answers Both Correctly LOC Commands (ask to open & close eyes;make a fist, let go): 0-Obeys Both Correctly Best Gaze (horizontal eye movement): 0-Normal Visual (use finger movement, counting or visual threat): 0-No Visual Loss Facial Palsy (show teeth or raise eyebrows & close eyes tght: 0-Symmetrical Movement Motor Function-left arm: 0-Normal Motor Function-right arm: 0-Normal Motor Function-left le-Normal Motor Function-right le-Normal Limb Ataxia(akstzu-jajv-nhkvax, or heel to foster): 0-No Ataxia Sensory(pin prick to face,arms,trunk,legs-compare side/side): 0-No Ataxia Best Language(name item/read sentence.Ex-Down to Earth): 0-No Aphasia Dysarthria(Pt read words or say words Ex.Mama,Tip-Top,Thanks: 0-Normal Articulation Extinction and Inattention: 0-Normal NIH Total Score: 0 Modified [place] Score Criteria: 1-no significant disability despite symptoms Stroke tPA Guidelines - Inclusion Criteria for IV tPA 18 years old or older: Yes Ischemic stroke with measurable deficit: No Onset <3 hours ago *OR* 3-4.5 hours ago: No - Exclusion Criteria for IV tPA Evidence of intracranial hemorrhage on CT: No Presentation suggest SAH: No CT reveals defined area of hypodensity: No Evidence of AVM, neoplasm, aneurysm: No Seizure at stroke onset: No Active internal bleeding or acute trauma: No Platelet Count Less Than 100,000: No Heparin Within Last 48 HRS (PTT >Lab normal limits): No INR > 1.7 (warfarin use): No Use IIB/IIIA inhibitors within 24 hours: No Serious Head Trauma Within Last 3 Months: No Arterial Puncture Within Last 7 Days: No Lumbar Puncture Within Last 7 Days: No Repeated systolic Blood Pressure >185 or Diastolic >110: No - Additional Exclusion Criteria for IV tPA Currently on Coumadin: No Patient older than 80: No Prior stroke and diabetes: Yes Baseline NIHSS score > 25: No - Relative Contraindications to IV tPA CT reveals extensive area of infarct (>1/3 MCA territory): No Minor or rapidly improving stroke symptoms: Yes Major Surgery or Serious Trauma In Previous 14 Days: No AMI within 3 months: No Gastrointestinal or Urinary Tract hemorrhage in Past 21 Days: No Post - AMI pericarditis: No Blood Glucose Less Than 50 mg/dl or Greater Than 400 mg/dl: No - Consultation Candidate for:: NOT A CANDIDATE Reason not a candidate:: Minor symptoms that have subsided at time of exam. This chart was documented by the indicated scribe, (Sera Horowitz Scribe) and accurately reflects the services I performed and decisions made by , Yuri Honeycutt MD, as attested by the provider's signature.
[2018-09-01] MEDS: HUMULIN R SUBQ SCH ×2 (16:00→21:18)
--- NOTE | 2018-09-01 16:23 | HISTORY AND PHYSICAL ---
PRIMARY CARE PROVIDER: Dr. Esteban Simms. CHIEF COMPLAINT: Expressive aphasia for about an hour yesterday and lower back pain for three to four days. HISTORY OF PRESENT ILLNESS: Mr. Twan Yoon is a 77-year-old male with a medical history of TIA, hypertension, diabetes mellitus type 2, carotid stenosis with left carotid endarterectomy, now presents with complaints of lower back pain that has lasted three to four days and in addition to that he had an hour long worth of being unable to complete his sentences last night. Workup revealed that he has a urinary tract infection per urinalysis. He has been started on Rocephin. Neurological assessment is intact. Head CT was negative. So, will admit for further workup of TIA and treatment of urinary tract infection. PAST MEDICAL HISTORY: 1. Hypertension. 2. Diabetes mellitus type 2. 3. Carotid stenosis with left carotid endarterectomy in December of 2016. 4. Atrial fibrillation in the past, only one event. PAST SURGICAL HISTORY: 1. Appendectomy. 2. Left carotid endarterectomy, December 2016. 3. Right upper leg surgery for tendon repair. 4. Right great toe pinned. SOCIAL HISTORY: Quit smoking in 2007 or 2008. Prior to that he was a two pack per day smoker and had started smoking at the age of 14. Denies smokeless tobacco, alcohol, or illicit drug use. He lives at home with his . FAMILY HISTORY: Mother with diabetes, heart disease, and lung cancer. Father had cancer that was either throat or lung. Aunt had a stroke. ALLERGIES: No known drug allergies. HOME MEDICATIONS: 1. Vitamin D3 5000 units daily. 2. Aspirin 81 mg p.o. daily. 3. Namenda 10 mg p.o. twice daily. 4. Losartan 25 mg p.o. daily. 5. Colace 100 mg p.o. daily. 6. Trulicity 1.5 mg every Sunday. REVIEW OF SYSTEMS: A 14-point review of systems are complete and all were negative except for those mentioned in the above HPI. The lower back pain is more in the left flank area, that has been going on for about three to four days. He denies any fever or chills. PHYSICAL EXAMINATION: VITAL SIGNS: Temperature 97.4, heart rate 70, respiratory rate 18, blood pressure 129/76, O2 saturation 99% on room air. 5 ft 11 inches tall, 180 pounds, BMI is 25.1. GENERAL: Mr. Twan Yoon is a 77-year-old male. He is in no acute distress. He is answering most questions appropriately. HEENT: Atraumatic and normocephalic. Pupils are equal and reactive. Extraocular movements were intact. Mucous membranes are moist. He has dentures that are not secured, his upper dentures are not well secured. His tongue was midline. There was no deviation of that. There is no facial droop. NECK: Trachea midline. CARDIOVASCULAR: S1, S2. Regular rate and rhythm. No rubs, gallops or murmurs. Trace lower extremity edema. Plus 2 dorsalis and radial pulses. Negative for JVD or carotid bruits. PULMONARY: Clear to auscultate. No accessory muscle use or work of breathing noted. Tolerating room air. GASTROINTESTINAL: Soft. Nontender, nondistended. Positive bowel sounds x4. EXTREMITIES: Moves all extremities equally. Strength is about a 4 or 5 out of 5. Range of motion decreased but equal. NEUROLOGICAL: Oriented to name and place. Had to orient him to the current year. Other questions he answered appropriately. He denied any numbness or tingling. Followed commands. SKIN: Warm, dry and intact. LABORATORY DATA: White blood cells 9,000, hemoglobin 13, hematocrit 40, platelet count 128. Sodium 142, potassium 4.5, BUN 24, creatinine 1.2, glucose 98, calcium 9.2, bilirubin 0.47, AST 21, ALT 27. Albumin 3.7. Urinalysis trace of protein, small blood, positive nitrites, large leukocytes, too numerous to count white blood cells, and 4+ bacteria. IMAGING: Chest x-ray was negative for any acute findings; there is a right granuloma. Head CT showed no hemorrhage. There is atrophy with chronic microvascular ischemic changes. EKG with normal sinus rhythm; rate was 63; no ST changes; QTc is 433. ASSESSMENT AND PLAN: 1. Transient ischemic attack versus encephalopathy secondary to urinary tract infection. Either way, he is able to speak clearly and say exactly what he wants to say. Apparently, it lasted for at least an hour yesterday or last night. He has had a history of a transient ischemic attack in the past. He had to have left carotid endarterectomy in December of 2016. At home he is on aspirin, which we will continue that, but that is all he is on. He will also be on Lipitor. 2. Urinary tract infection per urinalysis. Does not appear we have done a urinary culture in the past. There is a reported urinary tract infection that he had apparently, was pretty severe last time he was here, according to the family, but there is no urine culture. So, he will be on Rocephin for now. Will give some intravenous fluid hydration. Will get a culture, because the only thing that was ordered was the urinalysis, will culture the urine. It is positive for nitrites and he is symptomatic with the lower back pain, left flank pain. 3. Diabetes mellitus, type 2. Will do patterned blood glucoses, sliding scale insulin. 4. Hypertension. Continue losartan. 5. History of atrial fibrillation x1 but no recent reports of it. 6. Deep venous thrombosis prophylaxis with sequential compression devices. Dictated by APRIL Plata for Gerald Leahy MD cc: APRIL Plata MD
--- NOTE | 2018-09-01 16:30 | HISTORY AND PHYSICAL ---
ADDENDUM TO HISTORY AND PHYSICAL: I saw Mr. Yoon today. The son was at the bedside at the time of the encounter. Mr. Yoon was brought to the emergency department because of an episode of difficulty talking which happened last night. This morning that neurological issue had resolved, but the family members chose to bring her to bring him for evaluation. Upon presentation patient vitals have all been reviewed. This seems to be within normal range. A CT scan of the head and a chest x-ray were all unremarkable. However, his urine seems to be extremely pathological now. Mr. Yoon said his urine has been very concentrated and every now and then he feels some burning when he pees. ASSESSMENT: 1. Expressive aphasia which has resolved. Unsure if this is a transient ischemic attack or it is actually secondary to his urinary tract infection . The patient is being is being treated with IV antibiotics and we will do a transient ischemic attack workup to rule out any potential for stroke. 2. Urinary tract infection. We are pending the urine cultures. The patient has been started on IV antibiotics. 3. Clinical volume depletion, will continue with gentle hydration. 4. Hypertension currently controlled. PLAN: So in general I think Ms. Yoon is fairly stable. We are going to admit him to the medical floor. We will adequately hydrate him, continue with the current IV antibiotics and do an MRI and MRA of the head and neck for TIA/stroke investigations. Please refer to the details of the history and physical dictated by the MORTGAGE BANKER in the chart. cc: Gerald Leahy MD
[2018-09-01] MEDS: NAMENDA PO SCH (21:29)
[2018-09-01] MEDS: LIPITOR PO SCH (21:30)
[2018-09-02] MEDS: NS 1,000 ML IV SCH ×2 (02:49→17:43)
[2018-09-02 05:53] LABS: HEMOGLOBIN 12.8 g/dL (14.0-18.0); MCH 31.1 PG (27-31); MCHC 33.7 g/dL (33-37); MPV 12.3 FL (7.4-10.4)
[2018-09-02 06:06] LABS: HEMOGLOBIN A1C 5.2 % (4.8-6.0)
[2018-09-02] MEDS: HUMULIN R SUBQ SCH ×4 (06:17→21:33)
[2018-09-02 06:19] LABS: AGAP 9; ALB/GLOB RATIO 1.3; ALBUMIN 3.6 g/dL (3.5-5.0); ALKALINE PHOSPHATASE 69 U/L (32-122); BUN 22 mg/dL (8-22); CALCIUM 8.7 mg/dL (8.8-10.2); CHLORIDE 109 mmol/L (98-107); COSMO 290; ESTIMATED GFR > 60; GLUCOSE 96 mg/dL (70-104); GOT 17 U/L (10-34); GPT 21 U/L (10-44); POTASSIUM 4.1 mmol/L (3.5-5.1); SODIUM 144 mmol/L (136-145); TCO2 26 mmol/L (25-35); TOTAL BILIRUBIN 0.54 mg/dL (0.20-1.00); TOTAL PROTEIN 6.3 g/dL (6.3-8.3)
[2018-09-02 06:48] LABS: BASO# 0.05 X1000 (0.0-0.2); BASO% 0.6 % (0.0-0.8); EOS# 0.44 X1000 (0.0-0.7); EOS% 5.3 % (0.0-10.0); LYMPH# 2.24 X1000 (1.2-3.4); LYMPH% 26.7 % (20.5-51.1); MCV 92.5 FL (81-99); MONO# 0.88 X1000 (0.11-0.59); MONO% 10.5 % (1.7-9.3); NEUT# 4.77 X1000 (1.4-6.5); NEUT% 56.9 % (42.2-75.2); PLT 118 X1000 (130-400); RBC 4.11 XMIL (4.7-6.1); RDW 13.2 % (11.5-14.5); WBC 8.38 X1000 (4.8-10.8)
[2018-09-02] MEDS ORDERED: TEARISOL OPH SOLUTION BOTH EYES PRN (10:11)
[2018-09-02] MEDS: VITAMIN D PO SCH (12:28)
[2018-09-02] MEDS: ASPIRIN PO SCH (12:28)
[2018-09-02] MEDS: COLACE PO SCH (12:28)
[2018-09-02] MEDS: NAMENDA PO SCH ×2 (12:28→21:38)
[2018-09-02] MEDS: COZAAR PO SCH (12:29)
--- NOTE | 2018-09-02 14:56 | PROGRESS NOTE ---
DATE: 09/02/2018 SUBJECTIVE: Patient has no major complaints. OBJECTIVE: Blood pressure is 164/64, heart rate 56, respiratory rate 14, temperature 98.5 degrees.Cardiovascular: Regular rate and rhythm. Pulmonary: Bilateral breath sounds clear to auscultation. GI: Soft, nontender, nondistended. Bowel sounds are positive. LABORATORY DATA: White count 8, hemoglobin and hematocrit 12 and 38, platelets 118,000. PROBLEM LIST: 1. Expressive aphasia, which has resolved. Unclear if this is transient ischemic attack or metabolic. MRI is of course not available today so that will not be pursued till tomorrow. An MRA has been ordered as well, although I am not quite sure what the utility of that is if the MRI is negative but I guess that is what we standardly we do here. Based on clinical suspicion we will have to watch him till tomorrow. 2. Urinary tract infection. He is growing out a gram-negative albaro. We do not have final sensitivities. He is on Rocephin. Continue to follow. 3. Early dementia. We will continue to monitor on that. 4. Hypertension is stable. DISPOSITION: Pending clinical status. cc: Levi Thapa MD
[2018-09-02] MEDS: ROCEPHIN 1 GM in NS 50 ML IV SCH (15:04)
--- NOTE | 2018-09-02 18:44 | ECHO REPORT ---
ORDER DATE: 09/01/2018 INTERPRETING PHYSICIAN: Dr. Rivera CLINICAL INDICATIONS: TIA. M-MODE MEASUREMENTS: Left ventricle end diastole: 4.8 cm. Left ventricle end systole: 3.1 cm. Posterior wall: 1.1 cm. Interventricular septum: 1.2 cm. Left atrium: 4.0 cm. Aortic diameter: 3.4 cm. SUMMARY OF 2-DIMENSIONAL IMAGIN. The left ventricular function is normal. Ejection fraction of 72%. 2. The atria appear to be normal. 3. The right ventricle appears to be normal. 4. The mitral valve looks normal. Color flow mapping shows no evidence of significant regurgitation. 5. Pulsed wave Doppler of mitral inflow shows reversal of the E and the A ratio. Ratio is 0.7. 6. The tissue Doppler of septal and lateral mitral annulus averages 5 1/2 cm. 7. The pulsed wave Doppler of pulmonary venous flow shows normal pattern. 8. There is impaired left ventricular relaxation. 9. The tricuspid valve looks grossly normal. 10.Inferior vena cava did not appear to be dilated. 11.The pulmonary pressure appears to be in the order of 26 to 31 mmHg. Pulmonic valve is unremarkable. 12.The aortic valve is abnormally thickened, especially in the non coronary cusp without stenosis. 13.The right coronary cusp and left coronary cusp showed no significant thickening. 14. I do not see any definite indication of vegetation, however consideration may be given at performing blood cultures on this patient to make sure there is no endocarditic condition, particularly if there is elevation of inflammatory markers or fever. 15.There is no pericardial effusion, mass, and no thrombus. Clinical correlation recommended. cc: MD Kathy Knight CRNP
[2018-09-02] MEDS: LIPITOR PO SCH (21:38)
[2018-09-02] MEDS: MELATONIN PO ONE (23:00)
[2018-09-03 06:07] LABS: BASO% 0.9 % (0.0-0.8); EOS% 6.3 % (0.0-10.0); HEMATOCRIT 36.9 % (42.0-52.0); HEMOGLOBIN 12.5 g/dL (14.0-18.0); LYMPH% 29.6 % (20.5-51.1); MCH 30.9 PG (27-31); MCHC 33.9 g/dL (33-37); MCV 91.3 FL (81-99); MONO% 10.1 % (1.7-9.3); MPV 12.3 FL (7.4-10.4); NEUT# 3.61 X1000 (1.4-6.5); NEUT% 53.1 % (42.2-75.2); PLT 120 X1000 (130-400); RBC 4.04 XMIL (4.7-6.1); RDW 12.9 % (11.5-14.5)
[2018-09-03 06:08] LABS: BASO# 0.06 X1000 (0.0-0.2); EOS# 0.43 X1000 (0.0-0.7); LYMPH# 2.01 X1000 (1.2-3.4); MONO# 0.69 X1000 (0.11-0.59)
[2018-09-03] MEDS: NS 1,000 ML IV SCH (06:26)
[2018-09-03] MEDS: MELATONIN PO ONE (06:30)
[2018-09-03] MEDS: HUMULIN R SUBQ SCH ×2 (06:43→13:27)
[2018-09-03 06:58] LABS: AGAP 9; BUN 20 mg/dL (8-22); CALCIUM 8.2 mg/dL (8.8-10.2); CHLORIDE 109 mmol/L (98-107); COSMO 289; ESTIMATED GFR > 60; GLUCOSE 98 mg/dL (70-104); POTASSIUM 3.9 mmol/L (3.5-5.1); SODIUM 144 mmol/L (136-145); TCO2 26 mmol/L (25-35)
--- NOTE | 2018-09-03 07:45 | EKG Report ---
Test Performed on : 09/01/2018 11:09:13 AM Test Reason : possible tia Blood Pressure : / mmHG Vent. Rate : 063 BPM Atrial Rate : 030 BPM P-R Int : 000 ms QRS Dur : 084 ms QT Int : 424 ms P-R-T Axes : 000 -20 013 degrees QTc Int : 433 ms Junctional rhythm. Abnormal ECG When compared with ECG of 07-MAY-2017 07:06, Junctional rhythm. has replaced Sinus rhythm. Vent. rate has decreased BY [address] elevation now present in Lateral leads Nonspecific T wave abnormality no longer evident in Lateral leads Unconfirmed Result
--- NOTE | 2018-09-03 09:56 | Diag Imaging Result Doc PS360 ---
MRI BRAIN W/WO CONTRAST - 09/02/2018 INDICATION: stroke symptoms COMPARISON: 05/07/2017 FINDINGS: There is no area of restricted diffusion. The ventricles and sulci are normal in size and contour. There is stable moderately extensive periventricular white matter chronic microvascular disease. No intracranial mass or hemorrhage. No abnormal contrast enhancement. IMPRESSION: No acute process. Electronically signed by Tree Caban 09/03/2018 9:53 AM
--- NOTE | 2018-09-03 09:58 | Diag Imaging Result Doc PS360 ---
MRA BRAIN W/O CONTRAST - 09/02/2018 INDICATION: stroke symptoms TECHNIQUE: Noncontrast [id number]-kh-[id number] technique was used COMPARISON: FINDINGS: There is moderately severe patient motion artifact distorting most of the images. Nevertheless exam is diagnostic. There is no aneurysm or significant stenosis. The intracranial arteries all appear grossly normal. IMPRESSION: No acute disease. Electronically signed by Tree Caban 09/03/2018 9:55 AM
[2018-09-03] MEDS: COLACE PO SCH (10:10)
[2018-09-03] MEDS: NAMENDA PO SCH (10:10)
[2018-09-03] MEDS: COZAAR PO SCH (10:10)
[2018-09-03] MEDS: ASPIRIN PO SCH (10:10)
[2018-09-03] MEDS: VITAMIN D PO SCH (10:10)
[2018-09-03 11:42] VITALS: BP 181/75
[2018-09-03] MEDS: ROCEPHIN 1 GM in NS 50 ML IV SCH (13:27)
--- NOTE | 2018-09-03 16:27 | DISCHARGE SUMMARY ---
ADMISSION DATE: 09/01/2018 DISCHARGE DATE: 09/03/2018 DISPOSITION: Home. FOLLOWUP: Follow-up will be with the patient's PCP, Dr. Esteban Simms. CONSULTATIONS: None. INVASIVE PROCEDURES DONE DURING THIS ADMISSION: None. IMAGING STUDIES OF SIGNIFICANCE: 1. Chest x-ray was normal. 2. CT scan of the head showed no hemorrhage, atrophy with chronic microvascular changes. 3. Echocardiogram showed an ejection fraction of 72% with normal right ventricle, normal wall motion. 4. An MRA of the brain showed no acute disease. An MRI showed no acute process. ADMISSION DIAGNOSES: 1. Expressive aphasia. 2. Urinary tract infection. 3. Clinical volume depletion. 4. Hypertension. DISCHARGE DIAGNOSES: 1. Transient expressive aphasia, questionable for transient ischemic attack. The patient MRI was completely negative. We think this could be secondary to urinary tract infection symptoms. 2. Klebsiella pneumoniae urinary tract infection. 3. Clinical volume depletion improved. 4. Hypertension. DISCHARGE MEDICATIONS: 1. Aspirin 81 mg daily. 2. Vitamin D. 3. Trulicity. 4. Losartan 25 mg daily. 5. Namenda 10 mg b.i.d. 6. Colace. 7. Atorvastatin 40 mg p.o. at bedtime. 8. Levofloxacin 250 p.o. daily for 5 days. PRESENTING COMPLAINT: Unable to talk clearly. HISTORY OF PRESENTING COMPLAINT: Mr. Yoon is a 77-year-old male who presented to the emergency department because of difficulty expressing himself a day prior. On the day of presentation, he was able to talk he was fine, but the family members were concerned because of a history of a TIA in the past and also has a left carotid endarterectomy in 2017. Upon presentation, Mr. Yoon was evaluated and admitted. It turned out that his urine was remarkably abnormal. He did complain of some urinary symptoms. His urine culture has come back positive for Klebsiella pneumoniae. The patient has been switched from IV antibiotics to p.o. Levaquin for a total of 5 days. During the hospital course Mr. Yoon has been consistently stable. No more difficulty talking. He is doing a lot better. He has been eating well, so we think he is stable for discharge. He is going to follow up with his primary care doctor. All the discharge instructions were discussed with him. He voiced understanding. was also at the bedside at the time of the encounter and she also voiced understanding. Time spent for discharge is 36 minutes. cc: MD Esteban Medina MD
--- NOTE | 2018-09-04 14:17 | Carotid Study ---
DATE: 09/01/2018 PROCEDURE: Bilateral carotid ultrasound study. COMPARISON: 01/07/2018 REQUESTING PHYSICIAN: INTERPRETING PHYSICIAN: Christoph Howard MD. TECH: Saman. INDICATIONS: TIA. EQUIPMENT: [employer] softwareid E9 ultrasound system with a 9LD transducer. OBSERVED DATA RIGHT LEFT Brachial Blood Pressure Carotid Pulse Bruits: Carotid/Sub DIAGRAM OF ULTRASOUND IMAGING R L RIGHT INT EXT INT EXT LEFT Kartik (cm/s) Kartik (cm/s) Subclavian 91/0 Subclavian 112/0 CCA Proximal 66/11 CCA Proximal 66/11 CCA Distal 63/12 CCA Distal 58/11 Bulb 54/9 Bulb 73/8 ICA Proximal 47/10 ICA Proximal 39/3 ICA Mid 50/12 ICA Mid 59/10 ICA Distal 54/14 ICA Distal 53/9 ECA 120/4 ECA 91/8 Vertebral 42/7 A Vertebral 35/9 A ICA/CCA Ratio 0.82 ICA/CCA Ratio 1.10 % Stenosis 0-39% % Stenosis 0-39% FINDINGS: Atherosclerosis is noted in bilateral carotid arteries. This appears relatively stable from previous study. There is bilateral thyroid nodularity noted, which is incompletely visualized on this study, but by report there appeared to be nodules on the previous ultrasound. Both vertebral arteries are antegrade flow. PHYSICIAN INTERPRETATION: By strict velocity criteria, no hemodynamically significant flow- limiting stenosis. Both vertebral arteries are antegrade flow. There are bilateral thyroid nodules, which I would recommend getting a dedicated thyroid ultrasound to evaluate better. cc: MD Kathy Garduno CRNP MTDD
== END 2018-09-03 15:03 | disposition home or self-care (01) ==
LOC: ED 10:06 → EDIPHOLD 14:02 → SUATTDRO 14:02 → INTOOBSV 14:02 → 4N 19:37
PROVIDERS: ATTEND Internal Medicine
CPT/HCPCS: 70450; 70544; 70553; 71010; 71045; 80048; 80053; 80061; 81001; 82948; 83036; 83721; 85025; 87040; 87077; 87088; 87186; 93005; 93306; 93880; 96365; 97161; 99285; A9270; A9579; J0696; J7030; XXXXX

== ENCOUNTER 2019-05-06 13:34 | Inpatient (IN) ==
[2019-05-06 14:06] LABS: BASO# 0.11 X1000 (0.0-0.2); BASO% 1.5 % (0.0-0.8); EOS# 0.32 X1000 (0.0-0.7); EOS% 4.4 % (0.0-10.0); HEMOGLOBIN 13.7 g/dL (14.0-18.0); LYMPH# 1.78 X1000 (1.2-3.4); LYMPH% 24.3 % (20.5-51.1); MCH 30.2 PG (27-31); MCHC 32.6 g/dL (33-37); MCV 92.5 FL (81-99); MONO# 0.55 X1000 (0.11-0.59); MONO% 7.5 % (1.7-9.3); MPV 12.6 FL (7.4-10.4); NEUT# 4.57 X1000 (1.4-6.5); NEUT% 62.3 % (42.2-75.2); PLT 127 X1000 (130-400); RBC 4.54 XMIL (4.7-6.1); RDW 13.5 % (11.5-14.5); WBC 7.33 X1000 (4.8-10.8)
--- NOTE | 2019-05-06 14:10 | EKG Report ---
Test Performed on : 05/06/2019 1:56:41 PM Test Reason : dizzy Blood Pressure : / mmHG Vent. Rate : 066 BPM Atrial Rate : 066 BPM P-R Int : 000 ms QRS Dur : 130 ms QT Int : 454 ms P-R-T Axes : 000 -54 030 degrees QTc Int : 475 ms Undetermined rhythm Right bundle branch block Left anterior fascicular block Bifascicular block Septal infarct , age undetermined Abnormal ECG When compared with ECG of 01-SEP-2018 11:09, Current undetermined rhythm precludes rhythm comparison, needs review (RBBB and left anterior fascicular block) is now present Septal infarct is now present Unconfirmed Result
[2019-05-06 14:20] LABS: ALB/GLOB RATIO 1.2; ALBUMIN 3.9 g/dL (3.5-5.0); CALCIUM 9.3 mg/dL (8.8-10.2); CREATININE 1.4 mg/dL (0.7-1.2); POTASSIUM 4.5 mmol/L (3.5-5.1); TOTAL BILIRUBIN 0.56 mg/dL (0.20-1.00); TOTAL PROTEIN 7.1 g/dL (6.3-8.3)
--- NOTE | 2019-05-06 14:44 | Diag Imaging Result Doc PS360 ---
CHEST-2 VIEWS - 05/06/2019 INDICATION: near syncope COMPARISON: 09/01/2018 FINDINGS: Heart size is borderline. There is some stable peripheral coarse interstitial opacity with basilar predominance suggesting mild pulmonary fibrosis. No new infiltrates. No pulmonary edema. No pneumothorax or pleural effusion. IMPRESSION: No change from prior. Electronically signed by Tree Caban 05/06/2019 2:42 PM
--- NOTE | 2019-05-06 15:18 | PROVIDER DOCUMENTATION ---
HPI-General Adult - General Chief Complaint: Dizziness Stated Complaint: LOW BP/SPORTS MED REFERRED Time Seen by Provider: 05/06/19 14:04 Source: patient, family Allergies/Adverse Reactions: Patient Allergies Allergy/AdvReac Type Severity Reaction Status Date / Time No Known Allergies Allergy Verified 05/06/17 15:16 Home Medications: Home Medication List Medication Instructions Recorded Confirmed Last Taken Type Aspirin 81 mg PO DAILY chewtab 05/16/17 05/07/19 Unknown Rx Cholecalciferol (Vitamin D3) 1 cap PO DAILY 09/01/18 05/07/19 Unknown History [Vitamin D3] Docusate Sodium [Colace] 1 tab PO DAILY 09/01/18 05/07/19 Unknown History Dulaglutide [Trulicity] 0.5 ml SQ DIRECTED 09/01/18 05/06/19 08/27/18 History Memantine HCl 1 tab PO BID 09/01/18 05/07/19 Unknown History ATORVAstatin [Lipitor] 40 mg PO QHS #120 tab 09/03/18 05/07/19 Unknown Rx Meloxicam [Mobic] 1 tab PO DAILY 05/06/19 05/07/19 Unknown History Valsartan 1 tab PO DAILY 05/06/19 05/07/19 Unknown History Carbidopa/Levodopa [Sinemet 10/100] 1 ea PO BID #120 tab 05/09/19 Unknown Rx Hydralazine [Apresoline] 25 mg PO TID PRN #20 tab 05/09/19 Unknown Rx - History of Present Illness -Gen Adult Nature of Presenting Problems: 78 YO M pmh for HTN presents with c/o low blood pressure. Pt states he has been having dizzy spells for the past few months and has had changes in his blood pressure medications. Recently, he was put back on his HTN meds at half dose and has been taking daily, but has had lightheaded spells over the past few days. 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 He was told to come to the ED to be evaluated. Review of Systems - Adult - REVIEW OF SYSTEMS - ADULT Constitutional: denies: chills, fever Eyes: reports: no symptoms reported Ears, Nose, Mouth & Throat: reports: no symptoms reported Cardiovascular: denies: chest pain, palpitations Respiratory: denies: cough, dyspnea on exertion, shortness of breath Gastrointestinal: reports: no symptoms reported Genitourinary: reports: no symptoms reported Musculoskeletal: reports: no symptoms reported Integumentary: reports: no symptoms reported Neurological: reports: no symptoms reported Psychiatric: reports: no symptoms reported Endocrine: reports: no symptoms reported Hematologic/Lymphatic: reports: no symptoms reported Allergic/Immunologic: reports: no symptoms reported Past History - Adult - PAST MEDICAL HISTORY-ADULT Review of Records: reports: Old Records Reviewed, Social history reviewed & non- contributory. Major Childhood Illnesses: reports: denies history Cardiovascular: reports: A-Fib, HTN Neurological: reports: TIA Endocrine/Immune: reports: Diabetes - PRIOR SURGERIES/PROCEDURES Surgical/Procedure History: reports: appendectomy, orthopedic (extremity) (R great toe; R leg tendon repair), other (L carotid endarterectomy) - IMMUNIZATION STATUS Childhood Immunizations: See Nurse Assessment Flu Vaccine: See Nurse Assessment - FAMILY HISTORY Family History: reviewed, not pertinent - SOCIAL HISTORY Smoking: quit greater than 1 year Living Situation: family Physical Exam-General - PHYSICAL EXAM-ADULT Initial Vital Signs Reviewed: Yes - CONSTITUTIONAL General Appearance: alert, no apparent distress - EYES Eyes: PERRL/EOMI, pink conjunctivae - HEAD, EARS, NOSE, MOUTH & THROAT HENMT: normocephalic/atraumatic, moist mucous membranes - NECK Neck: supple - RESPIRATORY Respiratory: lungs clear, normal breath sounds, no pleuratic chest pain, no respiratory distress, no accessory muscle use - CARDIOVASCULAR Cardiovascular: no edema, no gallop, no JVD, no murmur - GASTROINTESTINAL (ABDOMEN) Abdominal Exam: non tender, soft - MUSCULOSKELETAL Back Exam: no CVA tenderness, no vertebral tenderness Extremity: normal gait, normal inspection - SKIN Integumentary: normal color, normal turgor, warm/dry, other (scaley) - NEUROLOGIC Neurologic: facial droop (right sided, appears to be old, no new neuro deficits) , negative romberg's sign - PSYCHIATRIC Psych/Mental Status: normal mood/affect. negative: anxious Progress - PLAN OF CARE/RESULTS Progress/Plan/Lab Results: Vital Signs - 8 hr 05/06/19 13:40 Temperature 97.4 F L Pulse Rate 67 Respiratory Rate 19 Blood Pressure 120/61 O2 Sat by Pulse Oximetry 97 Laboratory Results - last 24 hr 05/06/19 05/06/19 05/06/19 13:45 13:47 13:47 WBC RBC Hgb Hct MCV MCH MCHC RDW Std Deviation Plt Count MPV Immature Gran % (Auto) Neut % (Auto) Lymph % (Auto) [place] % (Auto) Eos % (Auto) Baso % (Auto) Immature Gran # (Auto) Neut # (Auto) Lymph # (Auto) [place] # (Auto) Eos # (Auto) Baso # (Auto) Sodium 139 Potassium 4.5 Chloride 104 Carbon Dioxide 22 L Anion Gap 13 BUN 29 H Creatinine 1.4 H Estimated GFR/1.73 m2 49 BUN/Creatinine Ratio 21 Glucose 127 H POC Glucose 120 H Calculated Osmolality 285 Calcium 9.3 Total Bilirubin 0.56 AST 22 ALT 22 Alkaline Phosphatase 98 Total Protein 7.1 Albumin 3.9 Globulin 3.2 Albumin/Globulin Ratio 1.2 TSH 2.80 05/06/19 13:48 WBC 7.33 RBC 4.54 L Hgb 13.7 L Hct 42.0 MCV 92.5 MCH 30.2 MCHC 32.6 L RDW Std Deviation 13.5 Plt Count 127 L MPV 12.6 H Immature Gran % (Auto) 0.0 Neut % (Auto) 62.3 Lymph % (Auto) 24.3 [place] % (Auto) 7.5 Eos % (Auto) 4.4 Baso % (Auto) 1.5 H Immature Gran # (Auto) 0.00 Neut # (Auto) 4.57 Lymph # (Auto) 1.78 [place] # (Auto) 0.55 Eos # (Auto) 0.32 Baso # (Auto) 0.11 Sodium Potassium Chloride Carbon Dioxide Anion Gap BUN Creatinine Estimated GFR/1.73 m2 BUN/Creatinine Ratio Glucose POC Glucose Calculated Osmolality Calcium Total Bilirubin AST ALT Alkaline Phosphatase Total Protein Albumin Globulin Albumin/Globulin Ratio TSH Orders Category Date Time Status ED: Orthostatic Vital Signs (E DIRECTED Care 05/06/19 14:24 Active CHEST-2 VIEWS [RAD] Stat Exams 05/06/19 14:25 Completed CBC WITH ELECTRONIC DIFF [HEME] Stat Lab 05/06/19 13:48 Completed COMPREHENSIVE METABOLIC PANEL [CHEM] Stat Lab 05/06/19 13:47 Completed TSH Stat Lab 05/06/19 13:47 Completed URINALYSIS [URINALYSIS] Stat Lab 05/06/19 13:46 Uncollected Generalized Adult Illness >60 Stat Oth 05/06/19 13:46 Ordered EKG [EKG] Stat Ther 05/06/19 13:46 Draft Result Diagrams: 05/09/19 05:27 05/09/19 05:27 - EKG 1 Time of EKG reading by physician:: 13:07 EKG Read and Signed by:: Carlitos Rodriguez EKG Interpretation (*Must complete 3 of following elements*): Abnormal Rate: 66 Rhythm: RBBB, supraventricular bigeminy with bifascicular block QRS: RBB Prior EKG Comparison: changes noted (09/01/18) - XRAY 1 XRAY Study: Chest Impression: See EMR Report (HEST-2 VIEWS - 05/06/2019 INDICATION: near syncope COMPARISON: 09/01/2018 FINDINGS: Heart size is borderline. There is some stable peripheral coarse interstitial opacity with basilar predominance suggesting mild pulmonary fibrosis. No new infiltrates. No pulmonary edema. No pneumothorax or pleural effusion. IMPRESSION: No change from prior. Electronically signed by Tree Caban 05/06/2019 2:42 PM) - CT/MRI 1 CT Study: Head Impression: See EMR Report (EXAM: CT HEAD W/O CONTRAST HISTORY: dizzy TECHNIQUE: CT head without contrast COMPARISON: 09/01/2018 FINDINGS: No parenchymal hemorrhage. No epidural or subdural hematoma. No subarachnoid hemorrhage. There is atrophy with chronic microvascular ischemic changes. No mass identified on this noncontrasted exam. No hydrocephalus. No sinus opacification. IMPRESSION: 1.No hemorrhage 2.Atrophy with chronic microvascular ischemic changes This exam was performed using automated exp osure control, adjustment of mA or kV according to patient size, and/or use of iterative reconstruction technique. Electronically signed by Keven Dewitt 05/06/2019 4:04 PM) - CONSULTS/PCP/HOSPITALIST Notification #1 *Consult/PCP/Hospitalist*: Spoke with Krystin Time Discussed: 16:17 Consult Disposition: Will see in ED, Admit Departure - Departure Date of Disposition Decision: 05/06/19 Time of Disposition Decision: 16:09 DIAGNOSIS: Near syncope, Arrhythmia, Orthostatic hypotension Disposition: ADMITTED INPATIENT 09 Certified Medical Emergency: Emergent Condition: Stable - Critical Care Note This patient required my direct & personal management of CC.: No Attestation - Physician/ RUFINA Attestation Patient care was provided by Advanced Practice Provider:: No The physician spent face to face time with patient:: Yes Advanced Practice Provider documentation review:: Supervising physician onsite and consulted in the evaluation and care of this patient. The physician did have a face to face encounter with the patient.
[2019-05-06 15:26] LABS: URINE SOURCE CLEAN CATCH
[2019-05-06 15:30] LABS: BILIRUBIN URINE NEGATIVE (NEGATIVE); BLOOD URINE NEGATIVE (NEGATIVE); COLOR YELLOW; GLUCOSE URINE NEGATIVE (NEGATIVE); KETONE URINE TRACE mg/dL (NEGATIVE); LEUKOCYTES URINE NEGATIVE (NEGATIVE); NITRITE URINE NEGATIVE (NEGATIVE); PROTEIN URINE TRACE mg/dL (NEGATIVE); SP GRAVITY URINE 1.031; TURBIDITY URINE CLEAR (CLEAR); UR EPITHELIAL CELLS <10 /HPF (<10); URINE BACTERIA NEGATIVE /HPF; URINE RBC <10 /HPF (<10); URINE WBC <10 /HPF (<10); UROBILINOGEN URINE 4 mg/dL (NORMAL)
--- NOTE | 2019-05-06 16:07 | Diag Imaging Result Doc PS360 ---
EXAM: CT HEAD W/O CONTRAST HISTORY: dizzy TECHNIQUE: CT head without contrast COMPARISON: 09/01/2018 FINDINGS: No parenchymal hemorrhage. No epidural or subdural hematoma. No subarachnoid hemorrhage. There is atrophy with chronic microvascular ischemic changes. No mass identified on this noncontrasted exam. No hydrocephalus. No sinus opacification. IMPRESSION: 1.No hemorrhage 2.Atrophy with chronic microvascular ischemic changes This exam was performed using automated exposure control, adjustment of mA or kV according to patient size, and/or use of iterative reconstruction technique. Electronically signed by Keven Dewitt 05/06/2019 4:04 PM
[2019-05-06] MEDS ORDERED: COZAAR PO ONE (17:14)
[2019-05-06] MEDS ORDERED: ZOFRAN IV PRN (17:20)
[2019-05-06] MEDS ORDERED: TYLENOL PO PRN (17:20)
--- NOTE | 2019-05-06 19:18 | HISTORY AND PHYSICAL ---
ADDENDUM: I have seen and examined Mr. Yoon today. He had about 4 different family members at the bedside. Mr. Yoon is an 78-year-old elderly male who is said to have very erratic blood pressure with multiple changes to his regimen recently. He follows up with Dr. Esteban Simms. He also has Alzheimer's and dyslipidemia. Mr. Yoon refers that for the past 3 days, he gets very dizzy and unstable whenever he gets up from a sitting position. Upon presenting to the hospital, his vitals are very consistent with hypotension standing up. Systolic drops from 175 to 120. He denies any diarrhea. No vomiting. He said his urine has been getting quite concentrated, according to the . His current vitals have all been reviewed. He has remained very hypertensive on lying down. PHYSICAL EXAMINATION: GENERAL: For most part shows that he looks slightly dry. Otherwise, I did not see anything abnormal. CHEST: Clear to auscultation. There were no crepitations, no rhonchi. CARDIOVASCULAR: Regular rate and rhythm. GI: Abdomen is soft, nontender. LABORATORY DATA: Has all been reviewed. He does have normocytic anemia. The chemistry shows acute kidney injury with a creatinine of 1.4. Glucose is normal. ASSESSMENT/PLAN: 1. Dizziness associated with presyncopal episodes secondary to orthostatic hypotension. The patient will be hydrated overnight, and we will recheck his orthostatic vitals. 2. Uncontrolled hypertension. The patient remains remarkably hypertensive when lying down, but then hypotensive when he gets up. He is, according to the family members, always hypertensive. His blood pressure numbers just go up and down, quite erratic. He is at a he is 78 years old ,and I think secondary hypertension is quite prevalent at this population, so I think we need to rule that out. His chemistry does not suggest any hyperaldosteronism, so I would get a renal ultrasound to rule out renal artery stenosis and also get a screening serum metanephrine to rule out any pheochromocytoma. For now, I will put him on amlodipine for blood pressure control. Because he has acute kidney injury. I want to avoid the angiotensin- lxfotpoblb-nmmmsy-ikzctkyrrz or [id number]-[id number]. 3. Acute kidney injury, presumably from volume depletion. We will hydrate him overnight and check on the kidney functions in the morning. 4. Clinical volume depletion. Please refer to the details of the history and physical that has been dictated by the nurse. I have discussed the plan with her. I have also discussed my findings and the plan with the family who are at the bedside at the time of the encounter. cc: Gerald Leahy MD
--- NOTE | 2019-05-06 19:48 | HISTORY AND PHYSICAL ---
PRIMARY CARE PROVIDER: Esteban Simms MD. CHIEF COMPLAINT: Lightheaded spells. HISTORY OF PRESENT ILLNESS: Mr. Twan Yoon is an 78-year-old, male, with a medical history of TIA, GI bleed, hyperlipidemia, hypertension, diabetes, and carotid stenosis, and a CEA on the left, who states for the last 2 days he has been having issues with having dizzy, lightheaded spells. It is usually when he goes from sitting to a standing position. He does not usually have to sit back down. He usually stays standing until the dizziness goes away and the blurred vision goes away, then he goes to walking. This has been worse over the last 2 days. Apparently, he does have 1 spell probably each day. It has just been more frequent. He does keep a blood pressure diary and he has ranged anywhere from 110 to 200s over the last 2 to 3 days. However, today he went to the [facility] to have his toenails clipped, which he had performed, but they checked his blood pressure there which was in the 90s. They recommended him to come to the emergency room for evaluation; however, he wanted to go home. He went home, still did not feel good. His blood pressure was re- checked by home cuff automatic pressure, and it was 74/33, so then he was brought here. He does have positive orthostasis on his orthostatic vital signs. He went from lying down at [address] down to 120 systolic when he went to a standing position. Heart rate really did not change much. As far as changes to his medications at home, there are no real medication changes. Apparently, the losartan around 3 months ago was decreased by half, but otherwise no other changes. He denies any fever, chills, nausea, vomiting, diarrhea, or chest pains. He denies palpitations, but his EKG did show that he had some bigeminy. There is also a one time event of atrial fib in his past as well, but currently he is sinus and the PVCs have somewhat subsided. PAST MEDICAL HISTORY: 1. Hypertension. 2. Diabetes mellitus type 2. 3. Carotid artery stenosis, with left carotid endarterectomy in December 2016. 4. Atrial fibrillation in the past, but this was a one time event. 5. TIA. 6. GI bleed. 7. Hyperlipidemia. SURGICAL HISTORY: 1. Appendectomy. 2. Left CEA, December 2016. 3. Right upper leg tendon repair. 4. Right great toe pin. SOCIAL HISTORY: Quit smoking in 2007. Prior to that, he was a 2 pack per day smoker; started at the age of 14. No alcohol or illicit drug use. Lives with his and 2 dogs at home. FAMILY HISTORY: Mother had diabetes, heart disease, and lung cancer. Father had cancer of either throat or lung. An aunt had a stroke. ALLERGIES: No known drug allergies. HOME MEDICATIONS: Have not been reconciled. REVIEW OF SYSTEMS: Fourteen point review of systems are complete and all are negative except for those mentioned above in HPI. PHYSICAL EXAMINATION: VITAL SIGNS: Temperature 97.4 degrees, heart rate 67, respiratory rate 19, blood pressure 120/61, O2 saturation 97% on room air. Supine heart rate 63, blood pressure 175/66. Sitting heart rate 65, blood pressure 132/67. Standing heart rate 69, blood pressure 120/68. GENERAL: Twan Yoon is an 78-year-old, male. He is in no acute distress. He is able to answer questions appropriately. HEENT: Atraumatic, normocephalic. Pupils equal, round, reactive to light. Extraocular movements intact. Mucous membranes are dry. NECK: Trachea midline. CARDIOVASCULAR: S1, S2. Regular rate and rhythm. No rubs, gallops, murmurs. Trace lower extremity edema. +2 dorsalis and radial pulses. Negative JVD or carotid bruits. PULMONARY: Clear to auscultate, bilateral breath sounds. No accessory muscle use or work of breathing noted. GI: Soft, nontender, nondistended. Positive bowel sounds x4. EXTREMITIES: Moves all extremities equally. Had about 4/5 strength. Decreased range of motion. NEUROLOGIC: Oriented x3. Follows commands. Sensory is intact. SKIN: Warm, dry, intact. LABORATORY DATA: White blood cells 7000, hemoglobin 13, hematocrit 42, platelet count 127,000. Sodium 139, potassium 4.5, BUN 29, creatinine is 1.4, glucose 127, calcium 9.3, bilirubin 0.56, AST 22, ALT 22, albumin 3.9, TSH 2.80. Urinalysis: Trace protein, trace ketones, 4 urobilinogen. IMAGING: Chest x-ray is negative for any acute findings. Head CT: No hemorrhage. Atrophy with chronic microvascular ischemic changes. ASSESSMENT AND PLAN: 1. Near syncopal episodes or dizziness spells secondary to orthostatic hypotension. Could be due to dehydration. We will continue with orthostatic vitals. He has been started on intravenous fluid hydration. 2. Acute kidney injury, likely secondary to dehydration. He is going to get some intravenous fluid hydration. Also ordered is ultrasound renal artery vein and a complete renal ultrasound. 3. Diabetes mellitus type 2. Will do patterned blood glucoses and sliding scale insulin. 4. Bigeminy. Will keep electrolytes normal. Waiting for magnesium and currently those bigeminy spells have resolved, but we will monitor him in PVC overnight. 5. History of transient ischemic attack and carotid stenosis, but he has had a carotid endarterectomy. 6. History of gastrointestinal bleed. 7. Hyperlipidemia. Will continue his statin. 8. Hypertension. Continue with amlodipine. Dictated by APRIL Plata for Gerald Leahy MD cc: APRIL Plata MD
[2019-05-06] MEDS: NS 1,000 ML IV SCH (19:56)
[2019-05-06] MEDS ORDERED: NORVASC PO SCH (21:00)
[2019-05-06] MEDS: HUMULIN R SUBQ SCH (21:00)
[2019-05-07 05:00] LABS: BASO# 0.06 X1000 (0.0-0.2); BASO% 0.8 % (0.0-0.8); EOS# 0.45 X1000 (0.0-0.7); EOS% 6.1 % (0.0-10.0); HEMATOCRIT 39.1 % (42.0-52.0); HEMOGLOBIN 12.7 g/dL (14.0-18.0); LYMPH# 2.39 X1000 (1.2-3.4); LYMPH% 32.2 % (20.5-51.1); MCH 30.2 PG (27-31); MCHC 32.5 g/dL (33-37); MCV 93.1 FL (81-99); MONO# 0.83 X1000 (0.11-0.59); MONO% 11.2 % (1.7-9.3); MPV 12.5 FL (7.4-10.4); NEUT# 3.69 X1000 (1.4-6.5); NEUT% 49.7 % (42.2-75.2); PLT 104 X1000 (130-400); RDW 13.4 % (11.5-14.5); WBC 7.42 X1000 (4.8-10.8)
[2019-05-07 05:18] LABS: AGAP 11; ALB/GLOB RATIO 1.5; ALBUMIN 3.8 g/dL (3.5-5.0); ALKALINE PHOSPHATASE 92 U/L (32-122); BUN 29 mg/dL (8-22); CHLORIDE 107 mmol/L (98-107); COSMO 290; ESTIMATED GFR > 60; GLUCOSE 123 mg/dL (70-104); GOT 19 U/L (10-34); GPT 21 U/L (10-44); POTASSIUM 3.7 mmol/L (3.5-5.1); SODIUM 142 mmol/L (136-145); TCO2 24 mmol/L (25-35); TOTAL BILIRUBIN 0.44 mg/dL (0.20-1.00); TOTAL PROTEIN 6.4 g/dL (6.3-8.3)
[2019-05-07] MEDS: HUMULIN R SUBQ SCH ×5 (07:00→21:28)
[2019-05-07] MEDS ORDERED: NORVASC PO ONE (09:00)
--- NOTE | 2019-05-07 12:16 | PROGRESS NOTE ---
DATE: 05/07/2019 SUBJECTIVE: This morning, Mr. Yoon refers to be doing a lot better. He said he has been stood up earlier on but he did not feel any dizzy today. OBJECTIVE: Vital signs: Blood pressure is 105/47, pulse of 51, respirations 14, temperature 97.1 degrees. The patient is saturating 97% on room air. Earlier on, his orthostatic vitals continue to be positive. General: Mr. Yoon is an 78-year-old elderly gentleman. He is in bed, no distress. HEENT: Mucosa is pink and moist. Anicteric. Acyanotic. Neck: Supple. Chest: There is good air entry bilateral. I did not hear any crepitations, no rhonchi. Cardiovascular: Regular rate and rhythm. No murmurs, no rubs, no gallops. Gastrointestinal: Abdomen was soft, nontender. Bowel sounds were present. Extremities: No pedal edema. Central nervous system: Patient is awake, alert. He is somehow quite slow in responding. He has a pill- rolling resting tremor on the right upper extremity and he shows very little expression on his face. I did not explore his gait this morning. LABORATORY DATA: WBC is 7.42, hemoglobin is 12.7, platelet count of 104,000. Chemistry is also reviewed. Creatinine has normalized. ASSESSMENT AND PLAN: 1. Dizziness associated with presyncopal episode secondary to orthostatic hypotension. The patient continues to be orthostatic this morning so we are going to continue with the IV fluids. 2. Uncontrolled hypertension. The patient was given a dose of amlodipine early this morning. Blood pressure seems to have normalized. We are going to keep him off any medications for now since blood pressures actually seem to be a almost on the lower end. 3. Acute kidney injury, presumably from volume depletion. This has improved overnight. 4. Clinical volume depletion, improving. 5. Resting tremor on the right upper extremity associated with hypomimia features concerning for Parkinson's. Mr. Yoon also has been showing signs of hypotension, questionable orthostatic hypotension, which in the context of parkinsonism, would be concerning for multiple system atrophy. He is being treated for dementia on Namenda. We will get an MRI of the brain. We will also get Neurology to evaluate him and decide if he needs to be treated for Parkinson disease. In general, Mr. Yoon is doing well. He seems to be improving from hydration standpoint. He remains orthostatic hypotensive. We are going to continue with the IV fluids. He is also found to have evidence of parkinsonism, so we are going to work this up and we will get neurology to evaluate him. Disposition is going to depend on the rest of the hospital course. cc: Gerald Leahy MD
--- NOTE | 2019-05-07 12:31 | Diag Imaging Result Doc PS360 ---
MRI BRAIN W/WO CONTRAST - 05/07/2019 INDICATION: parkinson disease vs Multiple system atrophy COMPARISON: 05/06/2019, 09/03/2018 FINDINGS: There is no area of restricted diffusion. The ventricles and sulci remain grossly normal. There is stable moderately advanced periventricular cerebral white matter hyperintensity compatible with chronic microvascular ischemia here. The midbrain and substantial nigra appear grossly normal. No abnormal contrast enhancement. IMPRESSION: Chronic microvascular ischemia of cerebral white matter. No acute process. No change from prior. Electronically signed by Tree Caban 05/07/2019 12:29 PM
--- NOTE | 2019-05-07 13:35 | NEUROLOGY CONSULTATION ---
DATE: 05/07/2019 LOCATION: Emergency department holding bed. Mr. Yoon is 78 years old and he has had recent documented postural blood pressure drop, relatively longstanding history of postural lightheadedness, chronic dementia and apraxia. History from the patient is that he has had some lightheadedness, but never quite felt like he was about to faint. He has noted chronic unsteady gait and he is aware of tendency to take very short steps. He has had some dizziness on standing and some blurred vision. He reports he has not collapsed or fallen. Son at the bedside reports occasional unsteady gait worse some times than at other times. Son is not aware of patient falling. He believes the complaint of postural lightheadedness has been present for at least several months, some days worse than others, particularly prominent in the last several days. Son reports cognitive impairment diagnosed as dementia a few years ago has continued to progress. His current medications include memantine. Son is not certain about prior dementia management, but believes cholinesterase inhibitor has not been tried. Son has been aware of intermittent involuntary shaking in the right arm, mostly involving the thumb, mostly at rest. He has noticed this in the last few months. He has not noticed other abnormal movement. He has not been aware of loss of facial motility. Workup here includes noncontrast CT of the head and then brain MRI done with and without contrast showing chronic microvascular ischemic change, nothing focal or acute, no bleeding, no mass. on my view, there is not focal or generalized basal ganglia atrophy. Ventricles are only moderately enlarged. I saw Mr. Yoon for neurology evaluation when he was hospitalized 2 years ago. Findings then included dementia and apractic gait. He had generalized weakness, which improved. There was evidence of peripheral neuropathy and I believe he had nerve conduction study to document that then. This was thought to likely be due to diabetic neuropathy. Weakness was attributed to deconditioning and he improved. Lab this admission shows BUN 29, a little bit above baseline. Blood sugars have been 120s-140s. TSH is normal. Significant systolic blood pressure drop supine to standing has been documented this admission. On exam, Mr. Yoon is awake, alert, attentive. He seems appropriate. I observed him using his right hand to feed himself without difficulty. He was chewing and swallowing well. Voice is strong, not Parkinsonian. Speech is not dysarthric. Language function is intact. Remote memory is fair. Recent memory is poor. I did not test his cognitive function more thoroughly. He has full visual carrillo tested by confrontational finger counting. He has full horizontal eye movement conjugately. He has limited upgaze typical for age, not so limited as would be typical of supranuclear palsy. Tongue is midline. Gag is intact. Palate is midline. Facial motility is little bit diminished but not remarkably so. He did show facial expression while I was at the bedside. Shoulder shrug is equal. Strength is normal in the arms and legs. Tone is symmetric. I did not find definite cogwheeling. There was minimal intermittent resting tremor in the right hand with slight pill-rolling quality. I did not see tremor in the right leg. I did not see tremor in the left limbs. I did not test his gait. IMPRESSION: 1. Longstanding dementia and apraxia. If he has not had trial with cholinesterase inhibitor, I think that would be reasonable, but is not urgent. 2. There is slight parkinsonian appearance. We might consider careful trial with dopaminergic medicines. I discussed potential adverse effects with son at the bedside. 3. The most serious problem is the postural hypotension. That is being addressed. COMMENT: Combination of postural hypotension, tremor, apractic gait, dementia may all be due to a multisystem atrophy or could be idiopathic Parkinson disease. However, we have clear history of cognitive impairment initially followed by gait difficulty and only recent development of resting tremor. RECOMMENDATIONS: MRI report is noted. I do not think we need further imaging or other workup right now. When blood pressure is stable, we might consider cautious trial with medicine for Parkinson disease as mentioned above. Later, more likely as outpatient, if not already tried, cholinesterase inhibitor could be added. Thanks for asking Neurology to see Mr. Yoon. cc: MD JO ANN Buchanan III
--- NOTE | 2019-05-07 14:15 | Diag Imaging Result Doc PS360 ---
US DUPLEX RENAL ARTY/VEIN LMTD - 05/07/2019 INDICATION: r/o secondary HTN TECHNIQUE: COMPARISON: None FINDINGS: The kidneys are normal in echotexture. No hydronephrosis. The right kidney measures 10.3 x 5.1 x 4.2 cm. The left kidney measures 10.9 x 4.4 x 5.7 cm. The renal artery measurements are normal bilaterally. Segmental renal artery resistive index is about 0.74 bilaterally. Renal artery ratios are 1.13 on the right and 1.19 on the left. IMPRESSION: Negative exam. Electronically signed by Tree Caban 05/07/2019 2:13 PM
[2019-05-07] MEDS ORDERED: SINEMET 10/100 PO ONE (14:30)
[2019-05-07] MEDS: NS 1,000 ML IV SCH (15:04)
[2019-05-07] MEDS: LIPITOR PO SCH (21:25)
[2019-05-07] MEDS: SINEMET 10/100 PO SCH (21:25)
[2019-05-07] MEDS: NAMENDA PO SCH (21:26)
[2019-05-08] MEDS: HUMULIN R SUBQ SCH ×4 (06:02→21:02)
[2019-05-08 06:53] LABS: AGAP 10; ALB/GLOB RATIO 1.2; ALBUMIN 3.4 g/dL (3.5-5.0); ALKALINE PHOSPHATASE 80 U/L (32-122); BUN 26 mg/dL (8-22); CALCIUM 8.6 mg/dL (8.8-10.2); CHLORIDE 107 mmol/L (98-107); COSMO 287; CREATININE 1.1 mg/dL (0.7-1.2); ESTIMATED GFR > 60; GLUCOSE 112 mg/dL (70-104); GOT 20 U/L (10-34); GPT 6 U/L (10-44); MAGNESIUM 2.1 mg/dL (1.5-2.7); POTASSIUM 3.9 mmol/L (3.5-5.1); SODIUM 141 mmol/L (136-145); TCO2 24 mmol/L (25-35); TOTAL BILIRUBIN 0.51 mg/dL (0.20-1.00); TOTAL PROTEIN 6.2 g/dL (6.3-8.3)
[2019-05-08 06:58] LABS: BASO# 0.03 X1000 (0.0-0.2); BASO% 0.4 % (0.0-0.8); EOS# 0.41 X1000 (0.0-0.7); HEMATOCRIT 37.9 % (42.0-52.0); HEMOGLOBIN 12.5 g/dL (14.0-18.0); LYMPH# 1.59 X1000 (1.2-3.4); LYMPH% 23.2 % (20.5-51.1); MCH 30.9 PG (27-31); MCV 93.6 FL (81-99); MONO# 0.92 X1000 (0.11-0.59); MONO% 13.4 % (1.7-9.3); NEUT# 3.91 X1000 (1.4-6.5); PLT 97 X1000 (130-400); RBC 4.05 XMIL (4.7-6.1); RDW 13.7 % (11.5-14.5); WBC 6.86 X1000 (4.8-10.8)
[2019-05-08] MEDS: NAMENDA PO SCH ×2 (09:49→21:02)
[2019-05-08] MEDS: COLACE PO SCH (09:49)
[2019-05-08] MEDS: SINEMET 10/100 PO SCH ×2 (09:50→21:02)
[2019-05-08] MEDS: ASPIRIN PO SCH (09:50)
[2019-05-08] MEDS: VITAMIN D PO SCH (09:50)
--- NOTE | 2019-05-08 09:54 | NEUROLOGY PROGRESS NOTE ---
DATE: 05/08/2019 SUBJECTIVE: Mr. Yoon reports standing earlier today and noticing no lightheadedness or vision disturbance. I do not think he has taken steps without assistance since admission. He does not have any new complaints today. at the bedside this morning reports noticing shaking in the last several months, sometimes when he is writing. Her report is that she believes the shaking has been present in both hands. We reviewed his history of long-standing cognitive impairment and gait difficulty. She agrees those problems have been gradually progressing. She reports he started memantine 6 or 12 months ago. She does not recall his trying a cholinesterase inhibitor or medicine for Parkinson's disease. OBJECTIVE: He is awake, alert and attentive and seems brighter and more spontaneous today than when I saw him yesterday. Voice is strong. He used both arms purposefully. I did not find resting tremor, other tremor or cogwheel rigidity today. We discussed typical management of Alzheimer disease, apractic gait, parkinsonism versus Parkinson disease. We discussed potential adverse effects with dopaminergic and cholinergic medicines. Since he seems stable and improved, I think best management is to focus on his blood pressure now and to consider other options electively. I will be glad to see Mr. Yoon as an outpatient, if needed. cc: MD JO ANN Buchanan III
--- NOTE | 2019-05-08 13:59 | PROGRESS NOTE ---
DATE: 05/08/2019 SUBJECTIVE: The patient seems to be stable, his resting tremor especially in the right upper extremity apparently is much better and he seems to be eating good as well. I will wait for the Physical Therapy Team to evaluate this patient to see how he does. OBJECTIVE: Vital Signs: Temperature 97.6, pulse 65, respiratory rate 18, blood pressure 145/67, and oxygen saturation 94% on room air. HEENT: Head normocephalic. No trauma. PERRLA. Neck: Supple. No JVD. No masses. Central trachea. Chest: Clear to auscultation. No wheezing. No rales. Abdomen: Soft. Extremities: No edema. No clubbing. No cyanosis. Neurological: This patient's tremor seems to be a little bit better compared with yesterday; I did not see personally this patient but per the he seems to be better. He is answering to most of my questions. He is oriented to time. He uses a cane to walk at home. I will wait for Physical Therapy's evaluation and recommendations. Hopefully this patient can be discharged this afternoon or tomorrow morning; today would be the second day of treatment so lets see how he does. LABORATORY: WBC is 6.8, hemoglobin 12.5, hematocrit 37.9, platelet 97. Sodium 141, potassium 3.9, chloride 107, bicarbonate 26, BUN 26, creatinine 1.1, glucose 112, calcium 8.6, AST 20, ALT 6, alkaline phosphatase 80, and albumin 3.4. ASSESSMENT AND PLAN: 1. Dizziness associated with presyncopal episodes secondary to orthostatic hypotension. He seems to be better. His blood pressure has been stable and he does not look dehydrated. I will ask for a new set of orthostatic vital signs and I will wait for Physical Therapy to evaluate this patient. Yesterday he was started on a new treatment with Sinemet 10 mg/100 mg and he seems to be feeling better. 2. Uncontrolled hypertension. His blood pressure has been around the 150s and 140s today. It dropped during the night to 118. Yesterday he got some episodes of hypertension and hypotension as well. So, I believe for now I will not treat his blood pressure. He may have multiple system atrophy. 3. Acute kidney injury, improved This is his baseline. 4. Clinical volume depletion, improved. 5. Resting tremors of the right upper extremity associated with fissures concerning for Parkinson's disease. Today he seems to be doing much better and actually his resting tremor on the right side and left side are about the same, just mild. MRI has been negative for any issues. We have started this patient on Sinemet, and probably he is responding fine. I will wait for Neurology evaluation and recommendations and also Physical Therapy to reevaluate this patient. 6. Hyperglycemia. I am not quite sure if this patient has diabetes. I will get a hemoglobin A1c in the morning. cc: Tyrese Gaspar MD
[2019-05-08] MEDS: LIPITOR PO SCH (21:02)
[2019-05-09] MEDS: HUMULIN R SUBQ SCH (06:44)
[2019-05-09 07:11] LABS: BASO# 0.05 X1000 (0.0-0.2); BASO% 0.8 % (0.0-0.8); EOS# 0.34 X1000 (0.0-0.7); EOS% 5.7 % (0.0-10.0); HEMATOCRIT 37.7 % (42.0-52.0); HEMOGLOBIN 12.3 g/dL (14.0-18.0); LYMPH# 2.12 X1000 (1.2-3.4); LYMPH% 35.5 % (20.5-51.1); MCH 30.4 PG (27-31); MCHC 32.6 g/dL (33-37); MCV 93.1 FL (81-99); MONO# 0.79 X1000 (0.11-0.59); MONO% 13.2 % (1.7-9.3); MPV 12.8 FL (7.4-10.4); NEUT# 2.68 X1000 (1.4-6.5); NEUT% 44.8 % (42.2-75.2); PLT 96 X1000 (130-400); RBC 4.05 XMIL (4.7-6.1); RDW 13.5 % (11.5-14.5); WBC 5.98 X1000 (4.8-10.8)
[2019-05-09 07:18] LABS: HEMOGLOBIN A1C 6.1 % (4.8-6.0)
[2019-05-09 07:24] LABS: AGAP 11; ALB/GLOB RATIO 1.2; ALBUMIN 3.3 g/dL (3.5-5.0); ALKALINE PHOSPHATASE 80 U/L (32-122); BUN 27 mg/dL (8-22); CALCIUM 8.5 mg/dL (8.8-10.2); CHLORIDE 108 mmol/L (98-107); COSMO 287; CREATININE 1.1 mg/dL (0.7-1.2); ESTIMATED GFR > 60; GLUCOSE 85 mg/dL (70-104); GOT 17 U/L (10-34); GPT 6 U/L (10-44); MAGNESIUM 2.2 mg/dL (1.5-2.7); POTASSIUM 3.8 mmol/L (3.5-5.1); SODIUM 142 mmol/L (136-145); TCO2 23 mmol/L (25-35); TOTAL BILIRUBIN 0.49 mg/dL (0.20-1.00); TOTAL PROTEIN 6.1 g/dL (6.3-8.3)
[2019-05-09 08:24] VITALS: BP 132/56
[2019-05-09] MEDS: ASPIRIN PO SCH (08:51)
[2019-05-09] MEDS: VITAMIN D PO SCH (08:51)
[2019-05-09] MEDS: SINEMET 10/100 PO SCH (08:51)
[2019-05-09] MEDS: COLACE PO SCH (08:51)
[2019-05-09] MEDS: NAMENDA PO SCH (08:52)
--- NOTE | 2019-05-09 10:00 | NEUROLOGY PROGRESS NOTE ---
DATE: 05/09/2019 Mr. Yoon reports no lightheadedness or dizziness. He thinks his right hand shook a little bit when he was holding to the bed rail getting up earlier. He does not have any new complaints. On exam, he is awake, alert, attentive. Limb tone is symmetric without cogwheeling. He did well on melelo-nd-yney testing bilaterally. I did not see any tremor in the arms this morning, but there was occasional irregular apparently involuntary movement involving the left forearm. This was more consistent with myoclonus, not asterixis or rhythmic tremor. I do not have any new suggestions today. Depending on his clinical course, cholinesterase inhibitor and/or dopaminergic medication trials might be considered. If abnormal movement persists, that can be evaluated as an outpatient. Thanks for asking Neurology to see Mr. Yoon. cc: MD JO ANN Buchanan III
--- NOTE | 2019-05-09 21:25 | DISCHARGE SUMMARY ---
ADMISSION DATE: 05/06/2019 DISCHARGE DATE: 05/09/2019 DISCHARGE DIAGNOSES: 1. Dizziness associated with presyncopal episode secondary to orthostatic hypotension. 2. Uncontrolled hypertension. 3. Acute kidney injury, improved. 4. Clinical volume-depletion, improved. 5. Resting tremors on the right upper extremity concerning for Parkinson's disease, much better after getting treatment with carbidopa levodopa. 6. Diabetes with a good hemoglobin A1c at 6.1. PROCEDURES PERFORMED: Chest x-ray dated 05/06/2019. Impression: No change from prior. His heart size is borderline. There is some stable peripheral coarse interstitial opacity with basilar predominance suggesting mild pulmonary fibrosis, no new infiltrates, no pulmonary edema, no pneumothorax or pleural effusion. Head CT scan dated 05/06/2019. Impression: No hemorrhage. Aortic and renal ultrasound dated 05/07/2019. Impression: Negative exam. Brain MRI dated 05/07/2019. Impression: Chronic microvascular ischemia of cerebral white matter, no acute process, no change from prior. HOSPITAL COURSE: This is an 78-year-old male with a past medical history of TIA, GI bleed, hyperlipidemia, hypertension, diabetes, carotic stenosis and, admitted on 05/06/2019. States that, for 2 days, he has been having more issues with dizziness and lightheaded spells. It is usually when he goes from the sitting position to the standing position, usually he does not need to go and sit back down. He usually stays standing until the dizziness goes away and the blurred vision goes away, then he goes to walking but apparently he has been worse for 2 days prior to admission. He has been having also on and off an elevated blood pressure. Occasionally his blood pressure is also as low as 110, and apparently they checked his blood pressure recently on the [facility] and it was in the 90s and they recommended to come to the emergency department for evaluation, however he went home. When he went home, they rechecked the blood pressure. It was in the 70s, so he was brought here to the ER. He does have positive orthostasis on his orthostatic vital signs. When he was lying down, his systolic blood pressure was 175 and dropped to 120. He denies fever, chills, nausea, vomiting, diarrhea, chest pain. No palpitation. We did a CT scan of the head, MRI of the brain, and they did not show any acute problem. Renal and aorta ultrasound were unremarkable, as well as the chest x-ray. He had some tremors at the level of the right upper extremity and it has been suggested to start this patient on medication to treat a possibility of Parkinson's disease, but also the combination of postural hypotension, tremor, apractic gait, dementia can be associated to multi-system atrophy. This has been explained in detail to the daughter, which is a nurse, and she seems to understand. This has been explained also to the patient at the bedside today in detail. He is feeling much better. After starting this patient on Sinemet, the tremors basically disappeared. He is still having some orthostatic hypotension, but he seems to be hydrated. He was actually eating by himself and he does not look dehydrated. He will be discharged home today. He will follow up with Cardiology Department and also Dr. Martinez, which is the neurologist, but we need to ask for an appointment in 2 to 3 weeks. We need to call the office next Sunday since the office today is closed. The appointment with Dr. Rivera, which is a option trader, is on 06/12/2019 at 11:15 a.m. PHYSICAL EXAMINATION: Vital signs: Temperature 98.4 degrees, pulse 56, respiratory rate 18, blood pressure 132/56, oxygen saturation 98 on room air. HEENT: Head normocephalic, no trauma, PERRLA. Neck is supple. No JVD. No masses. Central trachea. Chest: Clear to auscultation. No wheezing. No rales. Abdomen: Soft, nontender, nondistended. No hepatosplenomegaly. Extremities: No edema, no clubbing, no cyanosis. Neurological examination: The patient is awake. He is oriented x2. He seems to be doing fine. I do not see any tremors. LABORATORY: WBC 5.9, hemoglobin 12.3, hematocrit 37.7, platelets 96,000. Sodium 142, potassium 3.8, chloride 108, bicarbonate 23, BUN 27, creatinine 1.1, glucose 85, calcium 8.5, albumin 3.3. DISCHARGE MEDICATIONS: Aspirin 81 mg p.o. daily, Lipitor 40 mg p.o. at bedtime, Sinemet 10/100 p.o. b.i.d., vitamin D3, one capsule p.o. daily, Colace 1 tablet p.o. daily, Trulicity 0.5 mL subcutaneously as directed, hydralazine 25 mg t.i.d. as needed for hypertension if the systolic blood pressure is above 180, Mobic 1 tablet p.o. daily, memantine 1 tablet p.o. b.i.d. and valsartan 80 mg p.o. daily. TIME SPENT: Time discharging this patient, and talking to the daughter, around 35 minutes. cc: Tyrese Gaspar MD MTDD
== END 2019-05-09 11:08 | disposition home health service (06) | DRG 312 ==
LOC: ED 13:34 → SUATTDRO 18:32 → EDIPHOLD 18:32 → 2N 05-07 16:33
PROVIDERS: ATTEND Internal Medicine